=== PATIENT | male | born 1965 | race Caucasian/White ===

== ENCOUNTER 2017-05-17 12:39 | Inpatient (IN) | payer MEDICAID ==
[~2017-05-17] VITALS: Ht 165.1 cm; Wt 96.0 kg
[~2017-05-17 12:39] MED LIST: ALBU8.5H IH; ARIP10TA14 PO; ASPI-556 PO; ATOR20TA86 PO; CARB15OT OT; CEPH250 PO; CEPH500 PO; CHOL200012 PO; DIPH25ST8; DULO60CA44 PO; FISH OIL 1,01 CAP.EC PO; GABA-531 PO; GABA-533 PO; GABA300S PO; INSLAN SQ; LISI-661 PO; LITH300T4 PO; METF500T4 PO; MIRT15TA6 PO; NOCURR; OMEP20TA86 PO; PERCT PO; PREG20SO PO; PREG50 PO; QUET100T PO; QUET25TA PO; SERT20OR PO; SITA100 PO; SULF-168 PO; TRAM50TA4 PO; TRAZ-147 PO; VICOT; VICOT PO
[2017-05-17 14:05] VITALS: BP 126/89
[2017-05-17] MEDS ORDERED: BACL10TA PO (14:11)
[2017-05-17] MEDS ORDERED: PREG50 PO (14:11)
[2017-05-17] MEDS ORDERED: DULO60CA44 PO (14:12)
[2017-05-17] MEDS ORDERED: OLANZapine 5 MG RAPDIS TABLET PO PRN ×2 (14:30→15:00)
[2017-05-17] MEDS ORDERED: DULoxetine HCL 20 MG CAPSULE PO SCH (14:30)
[2017-05-17] MEDS ORDERED: ACETAMINOPHEN 325 MG TABLET PO PRN (14:30)
[2017-05-17] MEDS ORDERED: LORazepam 2 MG TABLET PO PRN ×2 (14:30)
[2017-05-17] MEDS ORDERED: HydrOXYzine PAMOATE 50 MG CAPSULE PO PRN (14:30)
[2017-05-17] MEDS ORDERED: MAGNESIUM HYDROXIDE SUSPENSION 30 ML UDCUP PO PRN (14:30)
[2017-05-17] MEDS ORDERED: TUBERCULIN, PURIFIED PROTEIN DERIVATIVE 5 TU/0.1 ML SYG ID ONE (14:30)
[2017-05-17] MEDS ORDERED: MAG HYDROX/AL HYDROX/SIMETH ES 30 ML SUSPENSION UDCUP PO PRN (14:30)
[2017-05-17] MEDS ORDERED: PROMETHAZINE HCL 25 MG TABLET PO PRN (14:30)
[2017-05-17] MEDS ORDERED: ZOLPIDEM TARTRATE 10 MG TABLET PO PRN (14:30)
[2017-05-17] MEDS ORDERED: LOPERAMIDE HCL 2 MG CAPSULE PO PRN (14:30)
[2017-05-17 14:54] VITALS: BP 140/70
[2017-05-17] MEDS ORDERED: PNEUMOCOCCAL VACCINE POLYVALENT 0.5 ML VIAL [PPSV23] IM ONE (16:00)
[2017-05-17 16:29] VITALS: BP 115/76
[2017-05-17] MEDS: THIAMINE HCL 100 MG TABLET PO SCH (16:59)
[2017-05-17 17:07] LABS: GLUCOSE,POINT OF CARE 193 MG/DL (70-110)
[2017-05-17] MEDS ORDERED: GLUCAGON,HUMAN RECOMBINANT 1 MG VIAL IM PRN (17:45)
[2017-05-17] MEDS: INSULIN ASPART 100 UNITS/ML SQ PRN (18:46)
[2017-05-17] MEDS: OLANZapine 5 MG RAPDIS TABLET PO SCH (20:12)
[2017-05-17] MEDS: ZOLPIDEM TARTRATE 10 MG TABLET PO PRN (20:12)
[2017-05-17] MEDS ORDERED: OLANZapine 7.5 MG TABLET PO SCH (21:00)
[2017-05-18 06:12] LABS: GLUCOSE,POINT OF CARE 186 MG/DL (70-110)
[2017-05-18] MEDS: MetFORMIN HCL 500 MG TABLET PO SCH (06:35)
[2017-05-18] MEDS: INSULIN ASPART 100 UNITS/ML SQ PRN ×3 (06:35→20:58)
[2017-05-18 08:17] LABS: BASOPHILS # (AUTO) 0.03 K/uL (0.00-0.20); BASOPHILS % (AUTO) 0.3 % (0.0-2.0); EOSINOPHILS # (AUTO) 0.19 K/uL (0.00-0.70); EOSINOPHILS % (AUTO) 2.37 % (1.0-6.0); HEMATOCRIT 43.4 % (41-53); HEMOGLOBIN 14.6 g/dL (13.5-17.5); LYMPHOCYTES # (AUTO) 2.9 K/uL (1.0-4.8); LYMPHOCYTES % (AUTO) 37.1 % (22.0-44.0); MEAN CORPUSCULAR HEMOGLOBIN 29.3 pg (26.0-34.0); MEAN CORPUSCULAR HGB CONC 33.7 G/dL (31.0-37.0); MEAN CORPUSCULAR VOLUME 87 fL (80-100); MONOCYTES # (AUTO) 0.6 K/uL (0.1-1.0); NEUTROPHILS # (AUTO) 4.1 K/uL (1.8-7.7); NEUTROPHILS % (AUTO) 52.2 % (40.0-70.0); PLATELET COUNT (AUTO) 268 K/uL (150-450); RED BLOOD CELL COUNT(AUTO) 5.01 MIL/uL (4.50-5.90); RED CELL DISTRIBUTION WIDTH 13.6 % (11.5-14.5); WHITE BLOOD COUNT (AUTO) 7.8 K/uL (4.5-11.0)
[2017-05-18 08:25] LABS: HEMOGLOBIN A1C 7.4 % (4.5-6.2)
[2017-05-18] MEDS: THIAMINE HCL 100 MG TABLET PO SCH ×2 (08:29→16:27)
[2017-05-18] MEDS: NALTREXONE HCL 50 MG TABLET PO SCH (08:29)
[2017-05-18] MEDS: FOLIC ACID 1 MG TABLET PO SCH (08:29)
[2017-05-18] MEDS: MULTIVITAMINS WITH MINERALS, THERAPEUTIC TABLET PO SCH (08:29)
[2017-05-18 08:39] LABS: ALANINE AMINOTRANSFERASE 72 U/L (12-78); ALBUMIN 3.5 g/dL (3.4-5.0); ANION GAP 11 mmol/L (8-16); ASPARTATE AMINOTRANSFERASE 37 U/L (15-37); BILIRUBIN,TOTAL 0.5 mg/dL (0.1-1.0); CALCIUM, TOTAL 8.7 mg/dL (8.8-10.5); CARBON DIOXIDE 27 mmol/L (22-29); CHLORIDE 100 mmol/L (98-107); CHOL/HDL RATIO 6.9 (4.2-7.3); CREATININE 0.95 mg/dL (0.60-1.30); GLOMERULAR FILTR. RATE CALC > 60 mL/min (>60); POTASSIUM 4.1 mmol/L (3.5-5.1); SODIUM SERUM 138 mmol/L (136-145); THYROID STIMULATING HORMONE 1.53 uIU/mL (0.36-3.74); TOTAL PROTEIN, SERUM 7.3 g/dL (6.4-8.2); UREA NITROGEN, BLOOD 18 mg/dL (7-18)
[2017-05-18] MEDS ORDERED: DULoxetine HCL 20 MG CAPSULE PO SCH (09:00)
[2017-05-18 09:03] VITALS: BP 112/67
[2017-05-18] MEDS ORDERED: ALBUTEROL SULFATE HFA 90 MCG/PUFF 8 GM INHALER IH PRN (11:00)
[2017-05-18] MEDS: BACLOFEN 10 MG TABLET PO SCH ×2 (13:00→16:27)
[2017-05-18 16:10] VITALS: BP 102/60
[2017-05-18 19:52] LABS: GLUCOSE,POINT OF CARE 194 MG/DL (70-110)
[2017-05-18] MEDS: OLANZapine 5 MG RAPDIS TABLET PO SCH (20:06)
[2017-05-18] MEDS: ZOLPIDEM TARTRATE 10 MG TABLET PO PRN (20:07)
[2017-05-18] MEDS ORDERED: ROSUVASTATIN CALCIUM 10 MG TABLET PO SCH (21:00)
[2017-05-18 21:07] LABS: GLUCOSE,POINT OF CARE 174 MG/DL (70-110)
[2017-05-19 00:54] VITALS: BP 129/79
[2017-05-19 06:27] LABS: GLUCOSE,POINT OF CARE 180 MG/DL (70-110)
[2017-05-19] MEDS: MetFORMIN HCL 500 MG TABLET PO SCH (07:05)
[2017-05-19] MEDS: INSULIN ASPART 100 UNITS/ML SQ PRN ×2 (07:10→20:21)
[2017-05-19] MEDS: BACLOFEN 10 MG TABLET PO SCH ×3 (08:03→16:01)
[2017-05-19] MEDS: ATORVASTATIN CALCIUM 40 MG TABLET PO SCH (08:03)
[2017-05-19] MEDS: ASPIRIN 81 MG EC TABLET PO SCH (08:04)
[2017-05-19] MEDS: NALTREXONE HCL 50 MG TABLET PO SCH (08:04)
[2017-05-19] MEDS: CHOLECALCIFEROL (VIT D3) 2,000 UNITS TABLET PO SCH (08:04)
[2017-05-19] MEDS: THIAMINE HCL 100 MG TABLET PO SCH ×2 (08:05→16:01)
[2017-05-19] MEDS: FOLIC ACID 1 MG TABLET PO SCH (08:05)
[2017-05-19 08:07] VITALS: BP 126/70
[2017-05-19] MEDS: MULTIVITAMINS WITH MINERALS, THERAPEUTIC TABLET PO SCH (08:09)
[2017-05-19] MEDS ORDERED: DULoxetine HCL 30 MG CAPSULE PO SCH (09:00)
[2017-05-19] MEDS ORDERED: NALTREXONE HCL 50 MG TABLET PO SCH (09:00)
[2017-05-19] MEDS: GABAPENTIN 300 MG CAPSULE PO SCH ×2 (16:01→20:17)
[2017-05-19 16:02] VITALS: BP 119/76
[2017-05-19] MEDS ORDERED: GABAPENTIN 300 MG CAPSULE PO SCH (17:00)
[2017-05-19 17:13] LABS: GLUCOSE,POINT OF CARE 129 MG/DL (70-110)
[2017-05-19] MEDS: ZOLPIDEM TARTRATE 10 MG TABLET PO PRN (20:17)
[2017-05-19] MEDS: OLANZapine 5 MG RAPDIS TABLET PO SCH (20:17)
[2017-05-19 20:47] LABS: GLUCOSE,POINT OF CARE 280 MG/DL (70-110)
[2017-05-20 06:22] LABS: GLUCOSE,POINT OF CARE 170 MG/DL (70-110)
[2017-05-20 06:30] VITALS: BP 104/73
[2017-05-20] MEDS: MetFORMIN HCL 500 MG TABLET PO SCH (06:38)
[2017-05-20] MEDS: INSULIN ASPART 100 UNITS/ML SQ PRN ×2 (06:42→16:29)
[2017-05-20 08:00] VITALS: BP 120/72
[2017-05-20] MEDS: MULTIVITAMINS WITH MINERALS, THERAPEUTIC TABLET PO SCH (08:23)
[2017-05-20] MEDS: GABAPENTIN 300 MG CAPSULE PO SCH ×4 (08:23→20:24)
[2017-05-20] MEDS: BACLOFEN 10 MG TABLET PO SCH ×3 (08:23→16:31)
[2017-05-20] MEDS: CHOLECALCIFEROL (VIT D3) 2,000 UNITS TABLET PO SCH (08:23)
[2017-05-20] MEDS: THIAMINE HCL 100 MG TABLET PO SCH ×2 (08:23→16:31)
[2017-05-20] MEDS: ATORVASTATIN CALCIUM 40 MG TABLET PO SCH (08:23)
[2017-05-20] MEDS: ASPIRIN 81 MG EC TABLET PO SCH (08:23)
[2017-05-20] MEDS: FOLIC ACID 1 MG TABLET PO SCH (08:23)
[2017-05-20] MEDS: NALTREXONE HCL 50 MG TABLET PO SCH (08:23)
[2017-05-20] MEDS ORDERED: DULoxetine HCL 60 MG CAPSULE PO SCH (09:00)
[2017-05-20 16:00] VITALS: BP 120/80
[2017-05-20 16:16] LABS: GLUCOSE,POINT OF CARE 192 MG/DL (70-110)
[2017-05-20] MEDS: GuaiFENesin/D-METHORPHAN [SUGAR-FREE] 200-20MG/10 ML SYRUP UDCUP PO PRN (16:51)
[2017-05-20 18:27] VITALS: BP 120/80
[2017-05-20] MEDS: OLANZapine 5 MG RAPDIS TABLET PO SCH (20:24)
[2017-05-20] MEDS: ZOLPIDEM TARTRATE 10 MG TABLET PO PRN (20:58)
[2017-05-21 00:34] VITALS: BP 109/72
[2017-05-21 06:27] LABS: GLUCOSE,POINT OF CARE 148 MG/DL (70-110)
[2017-05-21] MEDS: INSULIN ASPART 100 UNITS/ML SQ PRN ×2 (07:07→16:50)
[2017-05-21] MEDS: MetFORMIN HCL 500 MG TABLET PO SCH (07:07)
[2017-05-21 08:20] VITALS: BP 115/70
[2017-05-21] MEDS: BACLOFEN 10 MG TABLET PO SCH ×3 (08:32→16:11)
[2017-05-21] MEDS: ATORVASTATIN CALCIUM 40 MG TABLET PO SCH (08:32)
[2017-05-21] MEDS: GABAPENTIN 300 MG CAPSULE PO SCH ×4 (08:32→20:01)
[2017-05-21] MEDS: FOLIC ACID 1 MG TABLET PO SCH (08:32)
[2017-05-21] MEDS: THIAMINE HCL 100 MG TABLET PO SCH ×2 (08:32→16:11)
[2017-05-21] MEDS: ASPIRIN 81 MG EC TABLET PO SCH (08:32)
[2017-05-21] MEDS: MULTIVITAMINS WITH MINERALS, THERAPEUTIC TABLET PO SCH (08:32)
[2017-05-21] MEDS: NALTREXONE HCL 50 MG TABLET PO SCH (08:32)
[2017-05-21] MEDS: DULoxetine HCL 30 MG CAPSULE PO SCH (08:36)
[2017-05-21] MEDS: CHOLECALCIFEROL (VIT D3) 2,000 UNITS TABLET PO SCH (08:36)
[2017-05-21] MEDS: GuaiFENesin/D-METHORPHAN [SUGAR-FREE] 200-20MG/10 ML SYRUP UDCUP PO PRN (14:36)
[2017-05-21 16:00] VITALS: BP 122/74
[2017-05-21 16:52] LABS: GLUCOSE,POINT OF CARE 272 MG/DL (70-110)
[2017-05-21] MEDS: OLANZapine 5 MG RAPDIS TABLET PO SCH (20:02)
[2017-05-21] MEDS: ZOLPIDEM TARTRATE 10 MG TABLET PO PRN (20:38)
[2017-05-22 00:20] VITALS: BP 124/71
[2017-05-22 06:09] VITALS: BP 111/66
[2017-05-22 06:17] LABS: GLUCOSE,POINT OF CARE 146 MG/DL (70-110)
[2017-05-22] MEDS: MetFORMIN HCL 500 MG TABLET PO SCH (06:56)
[2017-05-22] MEDS: INSULIN ASPART 100 UNITS/ML SQ PRN ×3 (06:59→20:45)
[2017-05-22 08:01] VITALS: BP 118/67
[2017-05-22] MEDS: CHOLECALCIFEROL (VIT D3) 2,000 UNITS TABLET PO SCH (08:37)
[2017-05-22] MEDS: GABAPENTIN 300 MG CAPSULE PO SCH ×4 (08:38→20:23)
[2017-05-22] MEDS: BACLOFEN 10 MG TABLET PO SCH ×3 (08:38→16:44)
[2017-05-22] MEDS: DULoxetine HCL 30 MG CAPSULE PO SCH (08:38)
[2017-05-22] MEDS: THIAMINE HCL 100 MG TABLET PO SCH ×2 (08:38→16:44)
[2017-05-22] MEDS: NALTREXONE HCL 50 MG TABLET PO SCH (08:38)
[2017-05-22] MEDS: MULTIVITAMINS WITH MINERALS, THERAPEUTIC TABLET PO SCH (08:38)
[2017-05-22] MEDS: ATORVASTATIN CALCIUM 40 MG TABLET PO SCH (08:38)
[2017-05-22] MEDS: FOLIC ACID 1 MG TABLET PO SCH (08:39)
[2017-05-22] MEDS: ASPIRIN 81 MG EC TABLET PO SCH (08:46)
[2017-05-22] MEDS: GuaiFENesin/D-METHORPHAN [SUGAR-FREE] 200-20MG/10 ML SYRUP UDCUP PO PRN (14:07)
[2017-05-22 16:00] VITALS: BP 121/68
[2017-05-22 16:42] LABS: GLUCOSE,POINT OF CARE 231 MG/DL (70-110)
[2017-05-22] MEDS: ZOLPIDEM TARTRATE 10 MG TABLET PO PRN (20:23)
[2017-05-22] MEDS: OLANZapine 5 MG RAPDIS TABLET PO SCH (20:23)
[2017-05-22 20:33] LABS: GLUCOSE,POINT OF CARE 241 MG/DL (70-110)
[2017-05-23 00:30] VITALS: BP 114/71
[2017-05-23] MEDS: MetFORMIN HCL 500 MG TABLET PO SCH (06:31)
[2017-05-23 06:32] LABS: GLUCOSE,POINT OF CARE 140 MG/DL (70-110)
[2017-05-23 08:59] VITALS: BP 120/65
[2017-05-23] MEDS: CHOLECALCIFEROL (VIT D3) 2,000 UNITS TABLET PO SCH (09:36)
[2017-05-23] MEDS: ATORVASTATIN CALCIUM 40 MG TABLET PO SCH (09:37)
[2017-05-23] MEDS: GABAPENTIN 300 MG CAPSULE PO SCH ×3 (09:37→16:09)
[2017-05-23] MEDS: BACLOFEN 10 MG TABLET PO SCH ×3 (09:37→16:09)
[2017-05-23] MEDS: MULTIVITAMINS WITH MINERALS, THERAPEUTIC TABLET PO SCH (09:37)
[2017-05-23] MEDS: NALTREXONE HCL 50 MG TABLET PO SCH (09:37)
[2017-05-23] MEDS: THIAMINE HCL 100 MG TABLET PO SCH ×2 (09:37→16:09)
[2017-05-23] MEDS: ASPIRIN 81 MG EC TABLET PO SCH (09:38)
[2017-05-23] MEDS: FOLIC ACID 1 MG TABLET PO SCH (09:38)
[2017-05-23] MEDS: DULoxetine HCL 30 MG CAPSULE PO SCH (09:52)
[2017-05-23 12:09] VITALS: BP 118/67
[2017-05-23] MEDS ORDERED: DULO30CA2 PO (15:19)
[2017-05-23] MEDS ORDERED: NALT50 PO (15:19)
[2017-05-23] MEDS ORDERED: GABA-531 PO (15:19)
[2017-05-23] MEDS ORDERED: OLAN5Z PO (15:19)
[2017-05-23 16:28] VITALS: BP 122/65
[2017-05-23] MEDS: INSULIN ASPART 100 UNITS/ML SQ PRN (17:03)
[2017-05-23 17:08] LABS: GLUCOSE,POINT OF CARE 270 MG/DL (70-110)
[2017-05-23] MEDS ORDERED: FOLI1TAB15 PO (18:30)
[2017-05-23] MEDS ORDERED: MV-M1TAB2 PO (18:30)
[2017-05-23] MEDS ORDERED: THIA100T78 PO (18:32)
== END 2017-05-23 19:35 | disposition home or self-care (01) | DRG 750 ==
LOC: B2S 14:42
PROVIDERS: ADMIT Psychiatry & Neurology Psychiatry; ATTEND Psychiatry & Neurology Psychiatry
PROC: 3E0234Z Introduction of Serum, Toxoid and Vaccine into Muscle, Percutaneous Approach (ICD-10-PCS; principal; 2017-05-17)
DX: F25.9 Schizoaffective disorder, unspecified (principal); E55.9 Vitamin D deficiency, unspecified; E11.9 Type 2 diabetes mellitus without complications; M81.0 Age-related osteoporosis without current pathological fracture; M54.30 Sciatica, unspecified side; Z90.49 Acquired absence of other specified parts of digestive tract; Z88.2 Allergy status to sulfonamides; Z88.8 Allergy status to other drugs, medicaments and biological substances; Z83.3 Family history of diabetes mellitus; Z84.89 Family history of other specified conditions; Z23 Encounter for immunization
CPT/HCPCS: 82962; 83036; 84439; 84443; 86592; 90471

== ENCOUNTER 2018-08-22 14:58 | Inpatient (IN) | payer MEDICAID, OTHER ==
[~2018-08-22] VITALS: Ht 170.2 cm; Wt 113.9 kg
[~2018-08-22 14:58] MED LIST changes: -ALBU8.5H IH; -ARIP10TA14 PO; +BACL10TA PO; -CARB15OT OT; -CEPH250 PO; -CEPH500 PO; -DIPH25ST8; +DULO30CA2 PO; -FISH OIL 1,01 CAP.EC PO; +FOLI1TAB15 PO; -GABA-533 PO; -GABA300S PO; -INSLAN SQ; -LISI-661 PO; -LITH300T4 PO; +METF-960 PO; -METF500T4 PO; -MIRT15TA6 PO; +MV-M1TAB2 PO; +NALT50TA6 PO; -NOCURR; +OLAN5TAB40 PO; -OMEP20TA86 PO; -PERCT PO; -PREG20SO PO; -QUET100T PO; -QUET25TA PO; -SERT20OR PO; -SITA100 PO; -SULF-168 PO; +THIA100T78 PO; -TRAM50TA4 PO; -TRAZ-147 PO; -VICOT; -VICOT PO
[2018-08-22 16:55] LABS: BASOPHILS % (AUTO) 1.1 % (0.0-2.0); EOSINOPHILS % (AUTO) 1.2 % (1.0-6.0); HEMATOCRIT 44.1 % (41-53); HEMOGLOBIN 15.2 g/dL (13.5-17.5); LYMPHOCYTES # (AUTO) 2.7 K/uL (1.0-4.8); LYMPHOCYTES % (AUTO) 30.9 % (22.0-44.0); MEAN CORPUSCULAR HEMOGLOBIN 28.1 pg (26.0-34.0); MEAN CORPUSCULAR HGB CONC 34.4 G/dL (31.0-37.0); MEAN CORPUSCULAR VOLUME 82 fL (80-100); MONOCYTES # (AUTO) 0.5 K/uL (0.1-1.0); NEUTROPHILS # (AUTO) 5.3 K/uL (1.8-7.7); NEUTROPHILS % (AUTO) 60.8 % (40.0-70.0); PLATELET COUNT (AUTO) 324 K/uL (150-450); RED BLOOD CELL COUNT(AUTO) 5.41 MIL/uL (4.50-5.90); RED CELL DISTRIBUTION WIDTH 13.2 % (11.5-14.5)
[2018-08-22 17:13] LABS: ANION GAP 6 mmol/L (8-16); CARBON DIOXIDE 31 mmol/L (22-29); CHLORIDE 100 mmol/L (98-107); CREATININE 0.86 mg/dL (0.60-1.30); GLOMERULAR FILTR. RATE CALC > 60 mL/min (>60); GLUCOSE,RANDOM 273 mg/dL (70-110); POTASSIUM 4.4 mmol/L (3.5-5.1); SODIUM SERUM 137 mmol/L (136-145); UREA NITROGEN, BLOOD 15 mg/dL (7-18)
[2018-08-22] MEDS ORDERED: LORazepam 2 MG TABLET PO ONE (17:15)
[2018-08-22 17:19] LABS: ALANINE AMINOTRANSFERASE 69 U/L (12-78); ALBUMIN 3.7 g/dL (3.4-5.0); ALKALINE PHOSPHATASE 165 U/L (46-116); ASPARTATE AMINOTRANSFERASE 27 U/L (15-37); BILIRUBIN,TOTAL 0.4 mg/dL (0.1-1.0)
[2018-08-22 17:35] LABS: AMPHET/METH SCREEN,URINE NEGATIVE (NEGATIVE); BARBITURATE SCREEN, URINE NEGATIVE (NEGATIVE); BENZODIAZEPINES SCREEN,URINE NEGATIVE (NEGATIVE); CANNABINOID SCREEN,URINE NEGATIVE (NEGATIVE); COCAINE SCREEN,URINE NEGATIVE (NEGATIVE); METHADONE SCREEN, URINE NEGATIVE (NEGATIVE); OPIATE SCREEN,URINE NEGATIVE (NEGATIVE)
[2018-08-22 17:37] LABS: PHENCYCLIDINE SCREEN,URINE NEGATIVE (NEGATIVE)
[2018-08-22 19:58] VITALS: BP 132/77
[2018-08-22] MEDS ORDERED: MAGNESIUM HYDROXIDE SUSPENSION 30 ML UDCUP PO PRN (20:30)
[2018-08-22] MEDS ORDERED: CloNIDine HCL 0.1 MG TABLET PO PRN (20:30)
[2018-08-22] MEDS ORDERED: LOPERAMIDE HCL 2 MG CAPSULE PO PRN (20:30)
[2018-08-22] MEDS ORDERED: ONDANSETRON HCL 4 MG TABLET PO PRN (20:30)
[2018-08-22] MEDS ORDERED: IBUPROFEN 400 MG TABLET PO PRN (20:30)
[2018-08-22] MEDS ORDERED: GuaiFENesin/D-METHORPHAN [SUGAR-FREE] 200-20MG/10 ML SYRUP UDCUP PO PRN (20:30)
[2018-08-22] MEDS ORDERED: PETROLATUM,WHITE 71 GM JELLY TP PRN (20:30)
[2018-08-22] MEDS ORDERED: DOCUSATE SODIUM 100 MG CAPSULE PO PRN (20:30)
[2018-08-22] MEDS ORDERED: ACETAMINOPHEN 325 MG TABLET PO PRN (20:30)
[2018-08-22] MEDS: ZOLPIDEM TARTRATE 10 MG TABLET PO PRN (20:40)
[2018-08-22] MEDS ORDERED: DEXTROSE 50%-WATER 25 GM/50 ML SYRINGE IVP PRN (20:45)
[2018-08-22 21:29] LABS: CHOL/HDL RATIO 7.3 (4.2-7.3); CHOLESTEROL 248 mg/dL (131-200); HDL CHOLESTEROL 34 mg/dL (40-60); LDL CHOL (CALC.) 154 mg/dL (0-130); TRIGLYCERIDES 298 mg/dL (15-150)
[2018-08-22] MEDS ORDERED: -PHARMACY VACCINE NOTE- MISC ONE (21:30)
[2018-08-23 05:49] LABS: GLUCOMETER DEV NAME(LOC) 3EI C; GLUCOSE,POINT OF CARE 294 MG/DL (70-110)
[2018-08-23 06:13] VITALS: BP 128/81
[2018-08-23 06:32] LABS: HEMOGLOBIN A1C 10.1 % (4.5-6.2)
[2018-08-23] MEDS: MetFORMIN HCL 500 MG TABLET PO SCH (06:46)
[2018-08-23 06:53] LABS: CHOL/HDL RATIO 7.6 (4.2-7.3); THYROID STIMULATING HORMONE 4.04 uIU/mL (0.36-3.74)
[2018-08-23] MEDS: INSULIN LISPRO 100 UNITS/ML SQ PRN ×2 (07:13→17:22)
[2018-08-23 08:05] VITALS: BP 143/65
[2018-08-23] MEDS: ATORVASTATIN CALCIUM 20 MG TABLET PO SCH (08:13)
[2018-08-23] MEDS: PREGABALIN 50 MG CAPSULE PO SCH ×3 (08:13→16:40)
[2018-08-23] MEDS: BACLOFEN 10 MG TABLET PO SCH ×3 (08:13→16:39)
[2018-08-23] MEDS: FOLIC ACID 1 MG TABLET PO SCH (08:13)
[2018-08-23] MEDS: ASPIRIN 81 MG CHEWABLE TABLET PO SCH (08:14)
[2018-08-23] MEDS: MULTIVITAMINS WITH MINERALS, THERAPEUTIC TABLET PO SCH (08:14)
[2018-08-23] MEDS: THIAMINE HCL 100 MG TABLET PO SCH ×2 (08:14→16:40)
[2018-08-23] MEDS: CHOLECALCIFEROL (VIT D3) 1,000 UNITS TABLET PO SCH (08:14)
[2018-08-23 11:11] LABS: FREE T4 (FREE THYROXINE) 0.86 ng/dL (0.76-1.46)
[2018-08-23 16:30] VITALS: BP 127/72
[2018-08-23] MEDS: GABAPENTIN 300 MG CAPSULE PO SCH (16:40)
[2018-08-23 16:43] LABS: GLUCOMETER DEV NAME(LOC) 3EI C; GLUCOSE,POINT OF CARE 321 MG/DL (70-110)
[2018-08-23] MEDS: QUEtiapine FUMARATE 100 MG TABLET PO SCH (20:16)
[2018-08-23] MEDS: SIMVASTATIN 10 MG TABLET PO SCH (20:16)
[2018-08-24 05:39] LABS: GLUCOMETER DEV NAME(LOC) 3EI C; GLUCOSE,POINT OF CARE 277 MG/DL (70-110)
[2018-08-24] MEDS: MetFORMIN HCL 500 MG TABLET PO SCH (07:05)
[2018-08-24] MEDS: INSULIN LISPRO 100 UNITS/ML SQ PRN ×2 (07:18→17:44)
[2018-08-24 08:00] VITALS: BP 127/84
[2018-08-24] MEDS: ASPIRIN 81 MG CHEWABLE TABLET PO SCH (09:00)
[2018-08-24] MEDS: FOLIC ACID 1 MG TABLET PO SCH (09:01)
[2018-08-24] MEDS: SERTRALINE HCL 50 MG TABLET PO SCH (09:01)
[2018-08-24] MEDS: PREGABALIN 50 MG CAPSULE PO SCH ×3 (09:01→16:50)
[2018-08-24] MEDS: BACLOFEN 10 MG TABLET PO SCH ×3 (09:01→16:50)
[2018-08-24] MEDS: GABAPENTIN 300 MG CAPSULE PO SCH ×3 (09:01→16:50)
[2018-08-24] MEDS: ATORVASTATIN CALCIUM 20 MG TABLET PO SCH (09:02)
[2018-08-24] MEDS: THIAMINE HCL 100 MG TABLET PO SCH ×2 (09:02→16:50)
[2018-08-24] MEDS: CHOLECALCIFEROL (VIT D3) 1,000 UNITS TABLET PO SCH (09:02)
[2018-08-24] MEDS: MULTIVITAMINS WITH MINERALS, THERAPEUTIC TABLET PO SCH (09:02)
[2018-08-24] MEDS: MAG HYDROX/AL HYDROX/SIMETH ES 30 ML SUSPENSION UDCUP PO PRN ×2 (11:01→16:52)
[2018-08-24] MEDS ORDERED: BACLOFEN 10 MG TABLET PO PRN (15:00)
[2018-08-24 17:05] LABS: GLUCOMETER DEV NAME(LOC) 3EI C; GLUCOSE,POINT OF CARE 307 MG/DL (70-110)
[2018-08-24 19:32] VITALS: BP 150/66
[2018-08-24] MEDS: QUEtiapine FUMARATE 100 MG TABLET PO SCH (20:33)
[2018-08-24] MEDS: SIMVASTATIN 10 MG TABLET PO SCH (21:07)
[2018-08-25 05:35] LABS: GLUCOMETER DEV NAME(LOC) 3EI C; GLUCOSE,POINT OF CARE 312 MG/DL (70-110)
[2018-08-25] MEDS: GlipiZIDE 5 MG TABLET PO SCH (06:58)
[2018-08-25] MEDS: MetFORMIN HCL 500 MG TABLET PO SCH (06:58)
[2018-08-25] MEDS: INSULIN LISPRO 100 UNITS/ML SQ PRN ×2 (06:59→17:12)
[2018-08-25 08:00] VITALS: BP 111/68
[2018-08-25] MEDS: NICOTINE 14 MG/24 HOUR PATCH TD PRN (09:13)
[2018-08-25] MEDS: BACLOFEN 10 MG TABLET PO SCH ×3 (09:13→16:34)
[2018-08-25] MEDS: ATORVASTATIN CALCIUM 20 MG TABLET PO SCH (09:13)
[2018-08-25] MEDS: SERTRALINE HCL 50 MG TABLET PO SCH (09:14)
[2018-08-25] MEDS: PREGABALIN 50 MG CAPSULE PO SCH ×3 (09:14→16:34)
[2018-08-25] MEDS: ASPIRIN 81 MG CHEWABLE TABLET PO SCH (09:14)
[2018-08-25] MEDS: MULTIVITAMINS WITH MINERALS, THERAPEUTIC TABLET PO SCH (09:15)
[2018-08-25] MEDS: FOLIC ACID 1 MG TABLET PO SCH (09:15)
[2018-08-25] MEDS: GABAPENTIN 300 MG CAPSULE PO SCH ×3 (09:15→16:33)
[2018-08-25] MEDS: THIAMINE HCL 100 MG TABLET PO SCH ×2 (09:15→16:33)
[2018-08-25] MEDS: CHOLECALCIFEROL (VIT D3) 1,000 UNITS TABLET PO SCH (09:15)
[2018-08-25] MEDS: MAG HYDROX/AL HYDROX/SIMETH ES 30 ML SUSPENSION UDCUP PO PRN (11:35)
[2018-08-25] MEDS: LORazepam 2 MG TABLET PO PRN (16:33)
[2018-08-25] MEDS: HALOPERIDOL 5 MG TABLET PO PRN (16:33)
[2018-08-25 16:34] LABS: GLUCOMETER DEV NAME(LOC) 3EI C; GLUCOSE,POINT OF CARE 351 MG/DL (70-110)
[2018-08-25 19:56] VITALS: BP 150/64
[2018-08-25] MEDS: QUEtiapine FUMARATE 200 MG TABLET PO SCH (21:28)
[2018-08-25] MEDS: SIMVASTATIN 10 MG TABLET PO SCH (21:29)
[2018-08-26 05:59] LABS: GLUCOMETER DEV NAME(LOC) 3EI C; GLUCOSE,POINT OF CARE 358 MG/DL (70-110)
[2018-08-26] MEDS: GlipiZIDE 5 MG TABLET PO SCH (07:04)
[2018-08-26] MEDS: MetFORMIN HCL 500 MG TABLET PO SCH (07:04)
[2018-08-26] MEDS: INSULIN LISPRO 100 UNITS/ML SQ PRN ×2 (07:05→17:40)
[2018-08-26] MEDS: PREGABALIN 50 MG CAPSULE PO SCH ×3 (09:16→17:37)
[2018-08-26] MEDS: GABAPENTIN 300 MG CAPSULE PO SCH ×3 (09:17→17:37)
[2018-08-26] MEDS: ASPIRIN 81 MG CHEWABLE TABLET PO SCH (09:17)
[2018-08-26] MEDS: SERTRALINE HCL 50 MG TABLET PO SCH (09:17)
[2018-08-26] MEDS: MULTIVITAMINS WITH MINERALS, THERAPEUTIC TABLET PO SCH (09:17)
[2018-08-26] MEDS: THIAMINE HCL 100 MG TABLET PO SCH ×2 (09:17→17:37)
[2018-08-26] MEDS: FOLIC ACID 1 MG TABLET PO SCH (09:17)
[2018-08-26] MEDS: CHOLECALCIFEROL (VIT D3) 1,000 UNITS TABLET PO SCH (09:17)
[2018-08-26] MEDS: ATORVASTATIN CALCIUM 20 MG TABLET PO SCH (09:18)
[2018-08-26] MEDS: BACLOFEN 10 MG TABLET PO SCH ×3 (09:18→17:37)
[2018-08-26 10:05] VITALS: BP 126/81
[2018-08-26] MEDS: NICOTINE 14 MG/24 HOUR PATCH TD PRN (11:06)
[2018-08-26] MEDS: MAG HYDROX/AL HYDROX/SIMETH ES 30 ML SUSPENSION UDCUP PO PRN (13:07)
[2018-08-26 16:34] LABS: GLUCOMETER DEV NAME(LOC) 3EI C; GLUCOSE,POINT OF CARE 331 MG/DL (70-110)
[2018-08-26 19:53] VITALS: BP 148/74
[2018-08-26] MEDS: QUEtiapine FUMARATE 200 MG TABLET PO SCH (20:25)
[2018-08-26] MEDS: SIMVASTATIN 10 MG TABLET PO SCH (20:26)
[2018-08-27 06:09] LABS: GLUCOMETER DEV NAME(LOC) 3EI C; GLUCOSE,POINT OF CARE 282 MG/DL (70-110)
[2018-08-27] MEDS: MetFORMIN HCL 500 MG TABLET PO SCH (07:03)
[2018-08-27] MEDS: GlipiZIDE 5 MG TABLET PO SCH (07:04)
[2018-08-27] MEDS: INSULIN LISPRO 100 UNITS/ML SQ PRN ×2 (07:12→17:50)
[2018-08-27] MEDS: MULTIVITAMINS WITH MINERALS, THERAPEUTIC TABLET PO SCH (09:10)
[2018-08-27] MEDS: SERTRALINE HCL 50 MG TABLET PO SCH (09:10)
[2018-08-27] MEDS: CHOLECALCIFEROL (VIT D3) 1,000 UNITS TABLET PO SCH (09:11)
[2018-08-27] MEDS: THIAMINE HCL 100 MG TABLET PO SCH ×2 (09:11→16:31)
[2018-08-27] MEDS: PREGABALIN 50 MG CAPSULE PO SCH ×3 (09:11→16:31)
[2018-08-27] MEDS: FOLIC ACID 1 MG TABLET PO SCH (09:11)
[2018-08-27] MEDS: ASPIRIN 81 MG CHEWABLE TABLET PO SCH (09:11)
[2018-08-27] MEDS: GABAPENTIN 300 MG CAPSULE PO SCH ×3 (09:11→16:31)
[2018-08-27] MEDS: BACLOFEN 10 MG TABLET PO SCH ×3 (09:12→16:30)
[2018-08-27] MEDS: ATORVASTATIN CALCIUM 20 MG TABLET PO SCH (09:12)
[2018-08-27] MEDS: MAG HYDROX/AL HYDROX/SIMETH ES 30 ML SUSPENSION UDCUP PO PRN ×2 (09:15→20:32)
[2018-08-27 10:39] VITALS: BP 136/76
[2018-08-27] MEDS: NICOTINE 14 MG/24 HOUR PATCH TD PRN (12:39)
[2018-08-27] MEDS: LORazepam 2 MG TABLET PO PRN (16:31)
[2018-08-27 17:05] LABS: GLUCOMETER DEV NAME(LOC) 3EI C; GLUCOSE,POINT OF CARE 312 MG/DL (70-110)
[2018-08-27] MEDS: SIMVASTATIN 10 MG TABLET PO SCH (20:32)
[2018-08-27] MEDS: QUEtiapine FUMARATE 200 MG TABLET PO SCH (20:32)
[2018-08-27 22:08] VITALS: BP 123/84
[2018-08-28 05:34] LABS: GLUCOMETER DEV NAME(LOC) 3EI C; GLUCOSE,POINT OF CARE 366 MG/DL (70-110)
[2018-08-28] MEDS: MetFORMIN HCL 500 MG TABLET PO SCH (06:52)
[2018-08-28] MEDS: GlipiZIDE 5 MG TABLET PO SCH (06:52)
[2018-08-28] MEDS: INSULIN LISPRO 100 UNITS/ML SQ PRN ×2 (06:55→17:24)
[2018-08-28] MEDS: ASPIRIN 81 MG CHEWABLE TABLET PO SCH (09:56)
[2018-08-28] MEDS: PREGABALIN 50 MG CAPSULE PO SCH ×3 (09:57→16:18)
[2018-08-28] MEDS: BACLOFEN 10 MG TABLET PO SCH ×3 (09:57→16:18)
[2018-08-28] MEDS: CHOLECALCIFEROL (VIT D3) 1,000 UNITS TABLET PO SCH (09:57)
[2018-08-28] MEDS: SERTRALINE HCL 50 MG TABLET PO SCH (09:57)
[2018-08-28] MEDS: ATORVASTATIN CALCIUM 20 MG TABLET PO SCH (09:57)
[2018-08-28] MEDS: LORazepam 2 MG TABLET PO PRN (10:00)
[2018-08-28] MEDS: GABAPENTIN 300 MG CAPSULE PO SCH ×3 (10:00→16:18)
[2018-08-28] MEDS: MULTIVITAMINS WITH MINERALS, THERAPEUTIC TABLET PO SCH (10:01)
[2018-08-28] MEDS: FOLIC ACID 1 MG TABLET PO SCH (10:01)
[2018-08-28] MEDS: THIAMINE HCL 100 MG TABLET PO SCH ×2 (10:01→16:18)
[2018-08-28] MEDS: MAG HYDROX/AL HYDROX/SIMETH ES 30 ML SUSPENSION UDCUP PO PRN (10:04)
[2018-08-28] MEDS: ALBUTEROL SULFATE HFA 90 MCG/PUFF 8 GM INHALER IH PRN (16:20)
[2018-08-28 16:30] VITALS: BP 132/76
[2018-08-28 17:05] LABS: GLUCOMETER DEV NAME(LOC) 3EI C; GLUCOSE,POINT OF CARE 357 MG/DL (70-110)
[2018-08-28] MEDS: QUEtiapine FUMARATE 200 MG TABLET PO SCH (20:23)
[2018-08-28] MEDS: SIMVASTATIN 10 MG TABLET PO SCH (20:23)
[2018-08-29] MEDS ORDERED: QUET200T PO (04:19)
[2018-08-29] MEDS ORDERED: SERT50TA12 PO (04:19)
[2018-08-29] MEDS ORDERED: GABA-531 PO (04:20)
[2018-08-29] MEDS ORDERED: INSULIN LISPRO 100 UNITS/ML SQ ONE ×3 (05:45→17:15)
[2018-08-29 05:55] LABS: GLUCOMETER DEV NAME(LOC) 3EI C; GLUCOSE,POINT OF CARE 422 MG/DL (70-110)
[2018-08-29] MEDS: GlipiZIDE 5 MG TABLET PO SCH (06:47)
[2018-08-29] MEDS: MetFORMIN HCL 500 MG TABLET PO SCH (06:47)
[2018-08-29 06:58] VITALS: BP 118/90
[2018-08-29 07:19] LABS: GLUCOMETER DEV NAME(LOC) 3EI C; GLUCOSE,POINT OF CARE 411 MG/DL (70-110)
[2018-08-29 07:19] LABS: GLUCOMETER DEV NAME(LOC) 3EI C; GLUCOSE,POINT OF CARE 449 MG/DL (70-110)
[2018-08-29] MEDS: CHOLECALCIFEROL (VIT D3) 1,000 UNITS TABLET PO SCH (09:22)
[2018-08-29] MEDS: THIAMINE HCL 100 MG TABLET PO SCH ×2 (09:22→17:00)
[2018-08-29] MEDS: ASPIRIN 81 MG CHEWABLE TABLET PO SCH (09:22)
[2018-08-29] MEDS: SERTRALINE HCL 50 MG TABLET PO SCH (09:22)
[2018-08-29] MEDS: MULTIVITAMINS WITH MINERALS, THERAPEUTIC TABLET PO SCH (09:22)
[2018-08-29] MEDS: FOLIC ACID 1 MG TABLET PO SCH (09:26)
[2018-08-29] MEDS: ATORVASTATIN CALCIUM 20 MG TABLET PO SCH (09:27)
[2018-08-29] MEDS: BACLOFEN 10 MG TABLET PO SCH ×3 (09:27→17:00)
[2018-08-29] MEDS: GABAPENTIN 300 MG CAPSULE PO SCH ×3 (09:27→17:00)
[2018-08-29] MEDS: PREGABALIN 50 MG CAPSULE PO SCH ×3 (09:27→17:00)
[2018-08-29] MEDS: MAG HYDROX/AL HYDROX/SIMETH ES 30 ML SUSPENSION UDCUP PO PRN (09:32)
[2018-08-29] MEDS: LORazepam 2 MG TABLET PO PRN (09:46)
[2018-08-29 10:42] VITALS: BP 142/66
[2018-08-29] MEDS: NICOTINE 14 MG/24 HOUR PATCH TD PRN (11:25)
[2018-08-29 11:35] LABS: GLUCOMETER DEV NAME(LOC) 3EI C; GLUCOSE,POINT OF CARE 224 MG/DL (70-110)
[2018-08-29] MEDS: INSULIN LISPRO 100 UNITS/ML SQ PRN ×2 (12:21→21:35)
[2018-08-29] MEDS ORDERED: GlipiZIDE 5 MG TABLET PO SCH (17:00)
[2018-08-29 18:24] LABS: GLUCOMETER DEV NAME(LOC) 3EI C; GLUCOSE,POINT OF CARE 411 MG/DL (70-110)
[2018-08-29] MEDS: SIMVASTATIN 10 MG TABLET PO SCH (21:00)
[2018-08-29] MEDS ORDERED: INSULIN GLARGINE,HUM.REC.ANLOG 100 UNITS/ML SQ SCH ×2 (21:00)
[2018-08-29] MEDS: QUEtiapine FUMARATE 200 MG TABLET PO SCH (21:00)
[2018-08-29 21:36] VITALS: BP 138/71
[2018-08-29 21:44] LABS: GLUCOMETER DEV NAME(LOC) 3EI C; GLUCOSE,POINT OF CARE 302 MG/DL (70-110)
[2018-08-30 00:57] VITALS: BP 105/60
[2018-08-30] MEDS ORDERED: INSULIN LISPRO 100 UNITS/ML SQ ONE (05:30)
[2018-08-30 05:40] LABS: GLUCOMETER DEV NAME(LOC) 3EI C; GLUCOSE,POINT OF CARE 424 MG/DL (70-110)
[2018-08-30 06:53] LABS: GLUCOMETER DEV NAME(LOC) 3EI C; GLUCOSE,POINT OF CARE 411 MG/DL (70-110)
[2018-08-30] MEDS: MetFORMIN HCL 500 MG TABLET PO SCH (07:25)
[2018-08-30] MEDS: INSULIN GLARGINE,HUM.REC.ANLOG 100 UNITS/ML SQ SCH ×2 (08:35→17:55)
[2018-08-30] MEDS: ASPIRIN 81 MG CHEWABLE TABLET PO SCH (09:29)
[2018-08-30] MEDS: ATORVASTATIN CALCIUM 20 MG TABLET PO SCH (09:30)
[2018-08-30] MEDS: PREGABALIN 50 MG CAPSULE PO SCH ×3 (09:30→16:33)
[2018-08-30] MEDS: BACLOFEN 10 MG TABLET PO SCH ×3 (09:30→16:33)
[2018-08-30] MEDS: FOLIC ACID 1 MG TABLET PO SCH (09:30)
[2018-08-30] MEDS: GABAPENTIN 300 MG CAPSULE PO SCH ×3 (09:31→16:33)
[2018-08-30] MEDS: MULTIVITAMINS WITH MINERALS, THERAPEUTIC TABLET PO SCH (09:32)
[2018-08-30] MEDS: LORazepam 2 MG TABLET PO PRN ×3 (09:32→20:58)
[2018-08-30] MEDS: THIAMINE HCL 100 MG TABLET PO SCH ×2 (09:32→16:33)
[2018-08-30] MEDS: SERTRALINE HCL 50 MG TABLET PO SCH (09:32)
[2018-08-30] MEDS: CHOLECALCIFEROL (VIT D3) 1,000 UNITS TABLET PO SCH (09:32)
[2018-08-30] MEDS: MAG HYDROX/AL HYDROX/SIMETH ES 30 ML SUSPENSION UDCUP PO PRN ×2 (09:34→20:58)
[2018-08-30 10:40] VITALS: BP 129/69
[2018-08-30 11:34] LABS: GLUCOMETER DEV NAME(LOC) 3EI C; GLUCOSE,POINT OF CARE 239 MG/DL (70-110)
[2018-08-30] MEDS: INSULIN LISPRO 100 UNITS/ML SQ PRN ×3 (12:07→21:04)
[2018-08-30] MEDS: NICOTINE 14 MG/24 HOUR PATCH TD PRN (13:01)
[2018-08-30] MEDS: ALBUTEROL SULFATE HFA 90 MCG/PUFF 8 GM INHALER IH PRN (16:36)
[2018-08-30 16:39] LABS: GLUCOMETER DEV NAME(LOC) 3EI C; GLUCOSE,POINT OF CARE 346 MG/DL (70-110)
[2018-08-30 20:02] VITALS: BP 112/61
[2018-08-30] MEDS: QUEtiapine FUMARATE 200 MG TABLET PO SCH (20:58)
[2018-08-30] MEDS: SIMVASTATIN 10 MG TABLET PO SCH (20:58)
[2018-08-30 21:05] LABS: GLUCOMETER DEV NAME(LOC) 3EI C; GLUCOSE,POINT OF CARE 359 MG/DL (70-110)
[2018-08-31] MEDS ORDERED: INSULIN LISPRO 100 UNITS/ML SQ ONE ×2 (06:15→11:45)
[2018-08-31] MEDS: MetFORMIN HCL 500 MG TABLET PO SCH (06:54)
[2018-08-31 07:08] LABS: GLUCOMETER DEV NAME(LOC) 3EI C; GLUCOSE,POINT OF CARE 415 MG/DL (70-110)
[2018-08-31 07:09] LABS: GLUCOMETER DEV NAME(LOC) 3EI C; GLUCOSE,POINT OF CARE 366 MG/DL (70-110)
[2018-08-31] MEDS ORDERED: INSULIN GLARGINE,HUM.REC.ANLOG 100 UNITS/ML SQ SCH (09:00)
[2018-08-31] MEDS: GABAPENTIN 300 MG CAPSULE PO SCH ×3 (09:24→16:40)
[2018-08-31] MEDS: MULTIVITAMINS WITH MINERALS, THERAPEUTIC TABLET PO SCH (09:24)
[2018-08-31] MEDS: BACLOFEN 10 MG TABLET PO SCH ×3 (09:25→16:40)
[2018-08-31] MEDS: PREGABALIN 50 MG CAPSULE PO SCH ×3 (09:25→16:40)
[2018-08-31] MEDS: ASPIRIN 81 MG CHEWABLE TABLET PO SCH (09:25)
[2018-08-31] MEDS: LORazepam 2 MG TABLET PO PRN ×2 (09:25→20:50)
[2018-08-31] MEDS: THIAMINE HCL 100 MG TABLET PO SCH ×2 (09:27→16:40)
[2018-08-31] MEDS: FOLIC ACID 1 MG TABLET PO SCH (09:27)
[2018-08-31] MEDS: CHOLECALCIFEROL (VIT D3) 1,000 UNITS TABLET PO SCH (09:28)
[2018-08-31] MEDS: SERTRALINE HCL 50 MG TABLET PO SCH (09:28)
[2018-08-31] MEDS: MAG HYDROX/AL HYDROX/SIMETH ES 30 ML SUSPENSION UDCUP PO PRN (09:30)
[2018-08-31] MEDS: ATORVASTATIN CALCIUM 20 MG TABLET PO SCH (09:32)
[2018-08-31 11:50] LABS: GLUCOMETER DEV NAME(LOC) 3EI C; GLUCOSE,POINT OF CARE 419 MG/DL (70-110)
[2018-08-31] MEDS: INSULIN LISPRO 100 UNITS/ML SQ PRN ×3 (12:03→21:30)
[2018-08-31 16:48] LABS: GLUCOMETER DEV NAME(LOC) 3EI C; GLUCOSE,POINT OF CARE 335 MG/DL (70-110)
[2018-08-31] MEDS: INSULIN GLARGINE,HUM.REC.ANLOG 100 UNITS/ML SQ SCH (17:18)
[2018-08-31 18:40] VITALS: BP 132/56
[2018-08-31 20:34] LABS: GLUCOMETER DEV NAME(LOC) 3EI C; GLUCOSE,POINT OF CARE 219 MG/DL (70-110)
[2018-08-31] MEDS: SIMVASTATIN 10 MG TABLET PO SCH (20:51)
[2018-08-31] MEDS: QUEtiapine FUMARATE 200 MG TABLET PO SCH (20:51)
[2018-09-01 05:59] LABS: GLUCOMETER DEV NAME(LOC) 3EI C; GLUCOSE,POINT OF CARE 351 MG/DL (70-110)
[2018-09-01] MEDS: MetFORMIN HCL 500 MG TABLET PO SCH (06:55)
[2018-09-01] MEDS: INSULIN LISPRO 100 UNITS/ML SQ PRN ×4 (06:56→21:00)
[2018-09-01] MEDS: MULTIVITAMINS WITH MINERALS, THERAPEUTIC TABLET PO SCH (09:47)
[2018-09-01] MEDS: GABAPENTIN 300 MG CAPSULE PO SCH ×3 (09:47→16:14)
[2018-09-01] MEDS: CHOLECALCIFEROL (VIT D3) 1,000 UNITS TABLET PO SCH (09:47)
[2018-09-01] MEDS: THIAMINE HCL 100 MG TABLET PO SCH ×2 (09:47→16:14)
[2018-09-01] MEDS: SERTRALINE HCL 50 MG TABLET PO SCH (09:47)
[2018-09-01] MEDS: PREGABALIN 50 MG CAPSULE PO SCH ×3 (09:47→16:14)
[2018-09-01] MEDS: ASPIRIN 81 MG CHEWABLE TABLET PO SCH (09:47)
[2018-09-01] MEDS: FOLIC ACID 1 MG TABLET PO SCH (09:47)
[2018-09-01] MEDS: ATORVASTATIN CALCIUM 20 MG TABLET PO SCH (09:48)
[2018-09-01] MEDS: BACLOFEN 10 MG TABLET PO SCH ×3 (09:48→16:15)
[2018-09-01] MEDS: LORazepam 2 MG TABLET PO PRN (09:52)
[2018-09-01] MEDS: INSULIN GLARGINE,HUM.REC.ANLOG 100 UNITS/ML SQ SCH ×2 (09:59→17:16)
[2018-09-01 11:54] LABS: GLUCOMETER DEV NAME(LOC) 3EI C; GLUCOSE,POINT OF CARE 378 MG/DL (70-110)
[2018-09-01] MEDS: NICOTINE 14 MG/24 HOUR PATCH TD PRN (15:35)
[2018-09-01 17:31] VITALS: BP 131/73
[2018-09-01 17:54] LABS: GLUCOMETER DEV NAME(LOC) 3EI C; GLUCOSE,POINT OF CARE 367 MG/DL (70-110)
[2018-09-01 20:29] LABS: GLUCOMETER DEV NAME(LOC) 3EI C; GLUCOSE,POINT OF CARE 258 MG/DL (70-110)
[2018-09-01] MEDS: QUEtiapine FUMARATE 200 MG TABLET PO SCH (20:54)
[2018-09-01] MEDS: SIMVASTATIN 10 MG TABLET PO SCH (20:55)
[2018-09-01] MEDS: MAG HYDROX/AL HYDROX/SIMETH ES 30 ML SUSPENSION UDCUP PO PRN (20:56)
[2018-09-02 05:24] LABS: GLUCOMETER DEV NAME(LOC) 3EI C; GLUCOSE,POINT OF CARE 317 MG/DL (70-110)
[2018-09-02] MEDS: MetFORMIN HCL 500 MG TABLET PO SCH (07:08)
[2018-09-02] MEDS: INSULIN LISPRO 100 UNITS/ML SQ PRN ×4 (07:11→21:16)
[2018-09-02] MEDS: MULTIVITAMINS WITH MINERALS, THERAPEUTIC TABLET PO SCH (08:23)
[2018-09-02] MEDS: ASPIRIN 81 MG CHEWABLE TABLET PO SCH (08:23)
[2018-09-02] MEDS: THIAMINE HCL 100 MG TABLET PO SCH ×2 (08:23→16:17)
[2018-09-02] MEDS: PREGABALIN 50 MG CAPSULE PO SCH ×3 (08:24→16:17)
[2018-09-02] MEDS: GABAPENTIN 300 MG CAPSULE PO SCH ×3 (08:24→16:18)
[2018-09-02] MEDS: SERTRALINE HCL 50 MG TABLET PO SCH (08:25)
[2018-09-02] MEDS: BACLOFEN 10 MG TABLET PO SCH ×3 (08:26→16:18)
[2018-09-02] MEDS: ATORVASTATIN CALCIUM 20 MG TABLET PO SCH (08:26)
[2018-09-02] MEDS: FOLIC ACID 1 MG TABLET PO SCH (08:26)
[2018-09-02] MEDS: CHOLECALCIFEROL (VIT D3) 1,000 UNITS TABLET PO SCH (08:27)
[2018-09-02] MEDS: INSULIN GLARGINE,HUM.REC.ANLOG 100 UNITS/ML SQ SCH (08:38)
[2018-09-02] MEDS: MAG HYDROX/AL HYDROX/SIMETH ES 30 ML SUSPENSION UDCUP PO PRN (08:55)
[2018-09-02 11:07] VITALS: BP 145/82
[2018-09-02 11:34] LABS: GLUCOMETER DEV NAME(LOC) 3EI C; GLUCOSE,POINT OF CARE 378 MG/DL (70-110)
[2018-09-02] MEDS: NICOTINE 14 MG/24 HOUR PATCH TD PRN (13:58)
[2018-09-02 16:14] LABS: GLUCOMETER DEV NAME(LOC) 3EI C; GLUCOSE,POINT OF CARE 307 MG/DL (70-110)
[2018-09-02] MEDS: LORazepam 2 MG TABLET PO PRN ×2 (16:17→21:15)
[2018-09-02] MEDS: HALOPERIDOL 5 MG TABLET PO PRN (16:18)
[2018-09-02 16:42] VITALS: BP 130/59
[2018-09-02 20:29] LABS: GLUCOMETER DEV NAME(LOC) 3EI C; GLUCOSE,POINT OF CARE 396 MG/DL (70-110)
[2018-09-02] MEDS: SIMVASTATIN 10 MG TABLET PO SCH (21:15)
[2018-09-02] MEDS: QUEtiapine FUMARATE 200 MG TABLET PO SCH (21:15)
[2018-09-02] MEDS: ZOLPIDEM TARTRATE 10 MG TABLET PO PRN (21:15)
[2018-09-03 05:34] VITALS: BP 119/77
[2018-09-03 05:34] LABS: GLUCOMETER DEV NAME(LOC) 3EI C; GLUCOSE,POINT OF CARE 335 MG/DL (70-110)
[2018-09-03] MEDS: MetFORMIN HCL 500 MG TABLET PO SCH (06:53)
[2018-09-03] MEDS: INSULIN LISPRO 100 UNITS/ML SQ PRN ×4 (06:53→21:43)
[2018-09-03] MEDS: PREGABALIN 50 MG CAPSULE PO SCH ×3 (08:08→16:34)
[2018-09-03] MEDS: CHOLECALCIFEROL (VIT D3) 1,000 UNITS TABLET PO SCH (08:08)
[2018-09-03] MEDS: ASPIRIN 81 MG CHEWABLE TABLET PO SCH (08:08)
[2018-09-03] MEDS: BACLOFEN 10 MG TABLET PO SCH ×3 (08:08→16:34)
[2018-09-03] MEDS: ATORVASTATIN CALCIUM 20 MG TABLET PO SCH (08:09)
[2018-09-03] MEDS: MULTIVITAMINS WITH MINERALS, THERAPEUTIC TABLET PO SCH (08:09)
[2018-09-03] MEDS: SERTRALINE HCL 50 MG TABLET PO SCH (08:09)
[2018-09-03] MEDS: THIAMINE HCL 100 MG TABLET PO SCH ×2 (08:09→16:34)
[2018-09-03] MEDS: GABAPENTIN 300 MG CAPSULE PO SCH ×3 (08:10→16:34)
[2018-09-03] MEDS: FOLIC ACID 1 MG TABLET PO SCH (08:10)
[2018-09-03] MEDS: INSULIN GLARGINE,HUM.REC.ANLOG 100 UNITS/ML SQ SCH ×2 (08:38→17:54)
[2018-09-03 08:58] VITALS: BP 135/68
[2018-09-03 11:28] LABS: GLUCOMETER DEV NAME(LOC) 3EI C; GLUCOSE,POINT OF CARE 345 MG/DL (70-110)
[2018-09-03] MEDS: LORazepam 2 MG TABLET PO PRN (12:49)
[2018-09-03] MEDS: MAG HYDROX/AL HYDROX/SIMETH ES 30 ML SUSPENSION UDCUP PO PRN (12:53)
[2018-09-03 16:19] LABS: GLUCOMETER DEV NAME(LOC) 3EI C; GLUCOSE,POINT OF CARE 306 MG/DL (70-110)
[2018-09-03 16:31] VITALS: BP 120/86
[2018-09-03 16:35] VITALS: BP 125/69
[2018-09-03 20:40] LABS: GLUCOMETER DEV NAME(LOC) 3EI C; GLUCOSE,POINT OF CARE 314 MG/DL (70-110)
[2018-09-03] MEDS: SIMVASTATIN 10 MG TABLET PO SCH (21:42)
[2018-09-03] MEDS: ZOLPIDEM TARTRATE 10 MG TABLET PO PRN (21:42)
[2018-09-03] MEDS: QUEtiapine FUMARATE 200 MG TABLET PO SCH (21:43)
[2018-09-04 01:23] VITALS: BP 131/85
[2018-09-04 05:55] LABS: GLUCOMETER DEV NAME(LOC) 3EI C; GLUCOSE,POINT OF CARE 224 MG/DL (70-110)
[2018-09-04] MEDS: MetFORMIN HCL 500 MG TABLET PO SCH (06:51)
[2018-09-04] MEDS: LORazepam 2 MG TABLET PO PRN (06:51)
[2018-09-04] MEDS: INSULIN LISPRO 100 UNITS/ML SQ PRN ×2 (07:14→12:13)
[2018-09-04] MEDS: SERTRALINE HCL 50 MG TABLET PO SCH (08:13)
[2018-09-04] MEDS: PREGABALIN 50 MG CAPSULE PO SCH ×2 (08:13→12:14)
[2018-09-04] MEDS: ASPIRIN 81 MG CHEWABLE TABLET PO SCH (08:13)
[2018-09-04] MEDS: MULTIVITAMINS WITH MINERALS, THERAPEUTIC TABLET PO SCH (08:13)
[2018-09-04] MEDS: FOLIC ACID 1 MG TABLET PO SCH (08:15)
[2018-09-04] MEDS: CHOLECALCIFEROL (VIT D3) 1,000 UNITS TABLET PO SCH (08:15)
[2018-09-04] MEDS: GABAPENTIN 300 MG CAPSULE PO SCH ×2 (08:15→12:13)
[2018-09-04] MEDS: BACLOFEN 10 MG TABLET PO SCH ×2 (08:16→12:13)
[2018-09-04] MEDS: ATORVASTATIN CALCIUM 20 MG TABLET PO SCH (08:17)
[2018-09-04] MEDS: THIAMINE HCL 100 MG TABLET PO SCH (08:18)
[2018-09-04] MEDS: INSULIN GLARGINE,HUM.REC.ANLOG 100 UNITS/ML SQ SCH (08:25)
[2018-09-04 09:34] VITALS: BP 129/74
[2018-09-04 11:20] LABS: GLUCOMETER DEV NAME(LOC) 3EI C; GLUCOSE,POINT OF CARE 381 MG/DL (70-110)
[2018-09-04] MEDS ORDERED: INSLAN SQ (12:15)
[2018-09-04] MEDS ORDERED: SIMV-259 PO (12:16)
[2018-09-04] MEDS: MAG HYDROX/AL HYDROX/SIMETH ES 30 ML SUSPENSION UDCUP PO PRN (12:18)
[2018-09-04] MEDS: NICOTINE 14 MG/24 HOUR PATCH TD PRN (12:18)
== END 2018-09-04 16:00 | disposition home or self-care (01) | DRG 750 ==
LOC: EMS 14:59 → 3EI 18:17
DX: F25.1 Schizoaffective disorder, depressive type (principal); E11.9 Type 2 diabetes mellitus without complications; R45.851 Suicidal ideations; E55.9 Vitamin D deficiency, unspecified; E78.00 Pure hypercholesterolemia, unspecified; E78.5 Hyperlipidemia, unspecified; F10.10 Alcohol abuse, uncomplicated; F12.90 Cannabis use, unspecified, uncomplicated; F17.200 Nicotine dependence, unspecified, uncomplicated; I10 Essential (primary) hypertension; J44.9 Chronic obstructive pulmonary disease, unspecified; M19.90 Unspecified osteoarthritis, unspecified site; M54.30 Sciatica, unspecified side; M81.0 Age-related osteoporosis without current pathological fracture; M25.559 Pain in unspecified hip; Z59.0 Homelessness; Z79.4 Long term (current) use of insulin; Z79.899 Other long term (current) drug therapy; Z99.3 Dependence on wheelchair; Z88.2 Allergy status to sulfonamides; Z23 Encounter for immunization
CPT/HCPCS: 73503; 83036; 84439; 84443; 90686; 99406; G0480; J1815; J3535

== ENCOUNTER 2019-07-31 00:43 | Inpatient (IN) | payer MEDICAID, OTHER ==
[~2019-07-31] VITALS: Ht 167.6 cm; Wt 97.7 kg
[~2019-07-31 00:43] MED LIST changes: -DULO30CA2 PO; -DULO60CA44 PO; +INSLAN SQ; -NALT50TA6 PO; -OLAN5TAB40 PO; +QUET200T PO; +SERT50TA12 PO; +SIMV-259 PO
[2019-07-31 01:10] LABS: GLUCOSE,POINT OF CARE 471 MG/DL (70-110)
[2019-07-31 02:59] LABS: BASOPHILS % (AUTO) 0.3 % (0.0-2.0); EOSINOPHILS % (AUTO) 0.4 % (1.0-6.0); HEMATOCRIT 44.2 % (41-53); HEMOGLOBIN 14.7 g/dL (13.5-17.5); LYMPHOCYTES # (AUTO) 3.3 K/uL (1.0-4.8); LYMPHOCYTES % (AUTO) 23.1 % (22.0-44.0); MEAN CORPUSCULAR HEMOGLOBIN 29.2 pg (26.0-34.0); MEAN CORPUSCULAR HGB CONC 33.2 G/dL (31.0-37.0); MEAN CORPUSCULAR VOLUME 88 fL (80-100); MONOCYTES # (AUTO) 0.9 K/uL (0.1-1.0); MONOCYTES % (AUTO) 6.1 % (2.0-9.0); NEUTROPHILS % (AUTO) 70.1 % (40.0-70.0); PLATELET COUNT (AUTO) 351 K/uL (150-450); RED BLOOD CELL COUNT(AUTO) 5.02 MIL/uL (4.50-5.90); RED CELL DISTRIBUTION WIDTH 12.9 % (11.5-14.5)
[2019-07-31] MEDS ORDERED: SODIUM CHLORIDE 0.9% 1,000 ML IV ONE ×2 (03:15→16:40)
[2019-07-31] MEDS ORDERED: KETOROLAC TROMETHAMINE 30 MG/ML VIAL IVP ONE (03:15)
[2019-07-31] MEDS ORDERED: MethylPREDNISolone SOD SUCC 125 MG/2 ML VIAL IVP ONE (03:15)
[2019-07-31 03:20] LABS: ALANINE AMINOTRANSFERASE 18 U/L (12-78); ALBUMIN 3.9 g/dL (3.4-5.0); ALKALINE PHOSPHATASE 191 U/L (46-116); ANION GAP 11 mmol/L (8-16); ASPARTATE AMINOTRANSFERASE 9 U/L (15-37); C-REACTIVE PROTEIN QUANT 5.94 mg/dL (0.00-0.30); CALCIUM, TOTAL 9.4 mg/dL (8.8-10.5); CARBON DIOXIDE 30 mmol/L (22-29); CHLORIDE 90 mmol/L (98-107); CREATININE 0.95 mg/dL (0.60-1.30); GLOMERULAR FILTR. RATE CALC > 60 mL/min (>60); SODIUM SERUM 131 mmol/L (136-145); TOTAL PROTEIN, SERUM 7.9 g/dL (6.4-8.2); UREA NITROGEN, BLOOD 9 mg/dL (7-18)
[2019-07-31 03:23] LABS: GLUCOSE,RANDOM 509 mg/dL (70-110); LACTIC ACID 3.1 mmol/L (0.4-2.0)
[2019-07-31] MEDS ORDERED: SODIUM CHLORIDE 0.9% 2,850 ML IV ONE (03:28)
[2019-07-31] MEDS ORDERED: SODIUM CHLORIDE 0.9% 2,000 ML IV ONE (03:30)
[2019-07-31] MEDS ORDERED: FLUCONAZOLE 150 MG TABLET PO ONE (03:30)
[2019-07-31 03:41] LABS: GLUCOSE,POINT OF CARE 448 MG/DL (70-110)
[2019-07-31] MEDS ORDERED: MAALOX/LIDOCAINE/NYSTATIN SUSP 5 ML ORAL.SYG MM ONE (03:45)
[2019-07-31] MEDS ORDERED: CLINDAMYCIN 600 MG/D5% WATER 50 ML IV ONE (03:45)
[2019-07-31] MEDS ORDERED: ACETAMINOPHEN 325 MG TABLET PO PRN ×2 (03:45→07:00)
[2019-07-31] MEDS ORDERED: ONDANSETRON HCL 4 MG/2 ML VIAL IVP PRN ×2 (03:45→07:00)
[2019-07-31 03:52] LABS: INR 0.9 (0.9-1.1); PROTHROMBIN TIME 9.7 SEC (9.4-11.6)
[2019-07-31] MEDS: INSULIN REGULAR, HUMAN 100 UNITS/ML IVP ONE ×2 (04:30→04:33)
[2019-07-31 06:00] VITALS: BP 97/62
[2019-07-31] MEDS ORDERED: MAGNESIUM SULFATE 2 GM/WATER 50 ML IV PRN (07:00)
[2019-07-31] MEDS ORDERED: DEXTROSE 50%-WATER 25 GM/50 ML SYRINGE IVP PRN ×3 (07:00→17:00)
[2019-07-31] MEDS ORDERED: 0.9% SODIUM CHLORIDE 10 ML SYRINGE IVP PRN (07:00)
[2019-07-31] MEDS ORDERED: POTASSIUM CHL 10 MEQ/WATER 50 ML IV PRN (07:00)
[2019-07-31] MEDS ORDERED: INSULIN LISPRO 100 UNITS/ML SQ PRN ×2 (07:00→12:30)
[2019-07-31] MEDS ORDERED: MAGNESIUM SULFATE 4 GM/WATER 100 ML IV PRN (07:00)
[2019-07-31] MEDS ORDERED: POTASSIUM CHLORIDE 20 MEQ ER TABLET PO PRN (07:00)
[2019-07-31] MEDS ORDERED: ZOLPIDEM TARTRATE 5 MG TABLET PO PRN (07:00)
[2019-07-31 07:49] VITALS: BP 100/63
[2019-07-31] MEDS: CefTRIAXone 1 GM/DEXTROSE 50 ML IV SCH (08:43)
[2019-07-31] MEDS: MetFORMIN HCL 500 MG TABLET PO SCH (08:43)
[2019-07-31] MEDS: ATORVASTATIN CALCIUM 20 MG TABLET PO SCH (08:44)
[2019-07-31] MEDS: PREGABALIN 50 MG CAPSULE PO SCH ×3 (08:44→21:48)
[2019-07-31] MEDS: FOLIC ACID 1 MG TABLET PO SCH (08:44)
[2019-07-31] MEDS: ASPIRIN 81 MG EC TABLET PO SCH (08:44)
[2019-07-31] MEDS: DOCUSATE SODIUM 100 MG CAPSULE PO SCH ×2 (08:44→21:47)
[2019-07-31] MEDS: BACLOFEN 10 MG TABLET PO SCH ×3 (08:44→22:19)
[2019-07-31] MEDS: HEPARIN SODIUM,PORCINE 5,000 UNITS/ML VIAL SQ SCH ×2 (08:44→16:06)
[2019-07-31] MEDS: PANTOPRAZOLE SODIUM 40 MG DR TABLET PO SCH (08:45)
[2019-07-31] MEDS: THIAMINE HCL 100 MG TABLET PO SCH ×2 (08:45→21:48)
[2019-07-31] MEDS: GABAPENTIN 300 MG CAPSULE PO SCH ×3 (08:45→21:48)
[2019-07-31] MEDS: SERTRALINE HCL 50 MG TABLET PO SCH (08:45)
[2019-07-31] MEDS: CHOLECALCIFEROL (VIT D3) 1,000 UNITS TABLET PO SCH (08:47)
[2019-07-31] MEDS ORDERED: INSULIN GLARGINE,HUM.REC.ANLOG 100 UNITS/ML SQ SCH (09:00)
[2019-07-31] MEDS ORDERED: SODIUM CHLORIDE 0.9% 1,000 ML IV SCH ×2 (11:00→16:47)
[2019-07-31 11:37] LABS: GLUCOMETER DEV NAME(LOC) 6N.1; GLUCOSE,POINT OF CARE 305 MG/DL (70-110)
[2019-07-31 11:37] LABS: GLUCOMETER DEV NAME(LOC) 6N.1; GLUCOSE,POINT OF CARE > 600 MG/DL (70-110)
[2019-07-31 12:08] VITALS: BP 118/69
[2019-07-31] MEDS ORDERED: INSULIN REGULAR, HUMAN 100 UNITS/ML IVP ONE ×2 (12:30→17:00)
[2019-07-31] MEDS: SODIUM CHLORIDE 0.9% 1,000 ML IV SCH ×2 (12:47→19:10)
[2019-07-31 15:52] LABS: CALCIUM, TOTAL 8.7 mg/dL (8.8-10.5); CREATININE 1.41 mg/dL (0.60-1.30); POTASSIUM 4.1 mmol/L (3.5-5.1)
[2019-07-31 16:18] VITALS: BP 109/70
[2019-07-31] MEDS ORDERED: INSULIN REGULAR, HUMAN 100 UNITS in SODIUM CHLORIDE 0.9% 99 ML IV PRN ×2 (16:47)
[2019-07-31] MEDS ORDERED: SODIUM CHLORIDE 0.45% 1,000 ML IV PRN (16:47)
[2019-07-31] MEDS ORDERED: POTASSIUM CHL 20 MEQ/0.45% NS 1,000 ML IV PRN (16:47)
[2019-07-31] MEDS ORDERED: DEXTROSE 5%-0.45% SODIUM CHL 1,000 ML IV PRN (16:47)
[2019-07-31] MEDS ORDERED: VANCOMYCIN HCL 1.5 GM in DEXTROSE 5%-WATER 250 ML IV ONE (18:30)
[2019-07-31 19:21] LABS: BASOPHILS % (AUTO) 0.7 % (0.0-2.0); EOSINOPHILS % (AUTO) 0 % (1.0-6.0); HEMATOCRIT 42.4 % (41-53); HEMOGLOBIN 13.8 g/dL (13.5-17.5); LYMPHOCYTES # (AUTO) 1.8 K/uL (1.0-4.8); LYMPHOCYTES % (AUTO) 13.4 % (22.0-44.0); MEAN CORPUSCULAR HEMOGLOBIN 28.7 pg (26.0-34.0); MEAN CORPUSCULAR HGB CONC 32.5 G/dL (31.0-37.0); MEAN CORPUSCULAR VOLUME 88 fL (80-100); MONOCYTES # (AUTO) 0.7 K/uL (0.1-1.0); MONOCYTES % (AUTO) 5.1 % (2.0-9.0); NEUTROPHILS # (AUTO) 10.6 K/uL (1.8-7.7); NEUTROPHILS % (AUTO) 80.8 % (40.0-70.0); PLATELET COUNT (AUTO) 329 K/uL (150-450); RED CELL DISTRIBUTION WIDTH 13.1 % (11.5-14.5)
[2019-07-31] MEDS: INSULIN REGULAR, HUMAN 100 UNITS/ML IVP PRN ×2 (19:33→20:09)
[2019-07-31 19:35] LABS: ANION GAP 10 mmol/L (8-16); CARBON DIOXIDE 25 mmol/L (22-29); CHLORIDE 98 mmol/L (98-107); CREATININE 0.81 mg/dL (0.60-1.30); GLOMERULAR FILTR. RATE CALC > 60 mL/min (>60); GLUCOSE,RANDOM 267 mg/dL (70-110); POTASSIUM 3.9 mmol/L (3.5-5.1); SODIUM SERUM 133 mmol/L (136-145)
[2019-07-31 19:45] LABS: UREA NITROGEN, BLOOD 11 mg/dL (7-18)
[2019-07-31 20:00] VITALS: BP 107/70
[2019-07-31] MEDS: POTASSIUM CHLORIDE 40 MEQ in SODIUM CHLORIDE 0.45% 1,000 ML IV PRN ×2 (20:44→23:27)
[2019-07-31] MEDS: SIMVASTATIN 10 MG TABLET PO SCH (21:48)
[2019-07-31] MEDS: QUEtiapine FUMARATE 200 MG TABLET PO SCH (22:18)
[2019-08-01] VITALS (7 sets, daily range): BP systolic 93–137; BP diastolic 55–83
[2019-08-01 00:09] LABS: ANION GAP 9 mmol/L (8-16); CARBON DIOXIDE 24 mmol/L (22-29); CHLORIDE 104 mmol/L (98-107); CREATININE 0.57 mg/dL (0.60-1.30); GLOMERULAR FILTR. RATE CALC > 60 mL/min (>60); GLUCOSE,RANDOM 102 mg/dL (70-110); POTASSIUM 4.6 mmol/L (3.5-5.1); SODIUM SERUM 137 mmol/L (136-145); UREA NITROGEN, BLOOD 10 mg/dL (7-18)
[2019-08-01] MEDS: HEPARIN SODIUM,PORCINE 5,000 UNITS/ML VIAL SQ SCH ×4 (00:42→23:47)
[2019-08-01 03:21] LABS: BASOPHILS % (AUTO) 0.5 % (0.0-2.0); EOSINOPHILS % (AUTO) 0.1 % (1.0-6.0); HEMATOCRIT 40.6 % (41-53); HEMOGLOBIN 13.3 g/dL (13.5-17.5); LYMPHOCYTES # (AUTO) 2.4 K/uL (1.0-4.8); LYMPHOCYTES % (AUTO) 17.6 % (22.0-44.0); MEAN CORPUSCULAR HEMOGLOBIN 28.4 pg (26.0-34.0); MEAN CORPUSCULAR HGB CONC 32.7 G/dL (31.0-37.0); MEAN CORPUSCULAR VOLUME 87 fL (80-100); MONOCYTES # (AUTO) 0.7 K/uL (0.1-1.0); MONOCYTES % (AUTO) 5.5 % (2.0-9.0); NEUTROPHILS # (AUTO) 10.5 K/uL (1.8-7.7); NEUTROPHILS % (AUTO) 76.3 % (40.0-70.0); PLATELET COUNT (AUTO) 315 K/uL (150-450); RED BLOOD CELL COUNT(AUTO) 4.68 MIL/uL (4.50-5.90); RED CELL DISTRIBUTION WIDTH 12.8 % (11.5-14.5)
[2019-08-01 03:32] LABS: ALANINE AMINOTRANSFERASE 15 U/L (12-78); ALBUMIN 2.7 g/dL (3.4-5.0); ALKALINE PHOSPHATASE 118 U/L (46-116); ANION GAP 9 mmol/L (8-16); ASPARTATE AMINOTRANSFERASE 11 U/L (15-37); BILIRUBIN,TOTAL 0.3 mg/dL (0.1-1.0); CALCIUM, TOTAL 8.4 mg/dL (8.8-10.5); CARBON DIOXIDE 24 mmol/L (22-29); CHLORIDE 106 mmol/L (98-107); CREATININE 0.49 mg/dL (0.60-1.30); GLOMERULAR FILTR. RATE CALC > 60 mL/min (>60); GLUCOSE,RANDOM 94 mg/dL (70-110); SODIUM SERUM 139 mmol/L (136-145); TOTAL PROTEIN, SERUM 6.1 g/dL (6.4-8.2)
[2019-08-01 03:39] LABS: UREA NITROGEN, BLOOD 10 mg/dL (7-18)
[2019-08-01] MEDS ORDERED: DEXTROSE 50%-WATER 25 GM/50 ML SYRINGE IVP PRN (06:15)
[2019-08-01] MEDS ORDERED: VANCOMYCIN HCL 750 MG in DEXTROSE 5%-WATER 250 ML IV SCH (07:00)
[2019-08-01] MEDS: SODIUM CHLORIDE 0.9% 1,000 ML IV SCH (08:30)
[2019-08-01 08:40] LABS: GLUCOSE,POINT OF CARE 315 MG/DL (70-110)
[2019-08-01 08:40] LABS: GLUCOSE,POINT OF CARE 258 MG/DL (70-110)
[2019-08-01 08:40] LABS: GLUCOSE,POINT OF CARE 569 MG/DL (70-110)
[2019-08-01 08:40] LABS: GLUCOSE,POINT OF CARE 107 MG/DL (70-110)
[2019-08-01 08:40] LABS: GLUCOSE,POINT OF CARE 93 MG/DL (70-110)
[2019-08-01 08:40] LABS: GLUCOSE,POINT OF CARE 90 MG/DL (70-110)
[2019-08-01 08:40] LABS: GLUCOSE,POINT OF CARE 110 MG/DL (70-110)
[2019-08-01 08:40] LABS: GLUCOSE,POINT OF CARE 254 MG/DL (70-110)
[2019-08-01 08:40] LABS: GLUCOSE,POINT OF CARE 111 MG/DL (70-110)
[2019-08-01 08:40] LABS: GLUCOSE,POINT OF CARE 159 MG/DL (70-110)
[2019-08-01] MEDS: VANCOMYCIN HCL 1.25 GM in DEXTROSE 5%-WATER 250 ML IV SCH ×3 (08:58→23:47)
[2019-08-01] MEDS: MetFORMIN HCL 500 MG TABLET PO SCH (08:59)
[2019-08-01] MEDS: CefTRIAXone 1 GM/DEXTROSE 50 ML IV SCH (09:00)
[2019-08-01] MEDS: PREGABALIN 50 MG CAPSULE PO SCH ×3 (09:44→20:32)
[2019-08-01] MEDS: CHOLECALCIFEROL (VIT D3) 1,000 UNITS TABLET PO SCH (09:44)
[2019-08-01] MEDS: THIAMINE HCL 100 MG TABLET PO SCH ×2 (09:45→20:32)
[2019-08-01] MEDS: DOCUSATE SODIUM 100 MG CAPSULE PO SCH ×2 (09:45→20:32)
[2019-08-01] MEDS: BACLOFEN 10 MG TABLET PO SCH ×3 (09:45→20:32)
[2019-08-01] MEDS: PANTOPRAZOLE SODIUM 40 MG DR TABLET PO SCH (09:45)
[2019-08-01] MEDS: ATORVASTATIN CALCIUM 20 MG TABLET PO SCH (09:45)
[2019-08-01] MEDS: SERTRALINE HCL 50 MG TABLET PO SCH (09:45)
[2019-08-01] MEDS: FOLIC ACID 1 MG TABLET PO SCH (09:46)
[2019-08-01] MEDS: ASPIRIN 81 MG EC TABLET PO SCH (09:46)
[2019-08-01] MEDS: GABAPENTIN 300 MG CAPSULE PO SCH ×3 (09:46→20:32)
[2019-08-01] MEDS: CHLORHEXIDINE GLUCONATE 4% 118 ML TOPICAL LIQUID TP SCH (10:15)
[2019-08-01 13:05] LABS: GLUCOSE,POINT OF CARE 105 MG/DL (70-110)
[2019-08-01 13:05] LABS: GLUCOSE,POINT OF CARE 251 MG/DL (70-110)
[2019-08-01] MEDS: INSULIN LISPRO 100 UNITS/ML SQ PRN ×3 (17:21→23:47)
[2019-08-01] MEDS: MAGNESIUM OXIDE 400 MG TABLET PO PRN ×2 (17:45→23:46)
[2019-08-01 18:31] LABS: GLUCOMETER DEV NAME(LOC) 6N.1; GLUCOSE,POINT OF CARE 236 MG/DL (70-110)
[2019-08-01] MEDS: QUEtiapine FUMARATE 200 MG TABLET PO SCH (20:32)
[2019-08-01] MEDS: SIMVASTATIN 10 MG TABLET PO SCH (20:32)
[2019-08-01] MEDS ORDERED: SODIUM CHLORIDE 0.9% 250 ML IV ONE (23:43)
[2019-08-02 02:40] LABS: GLUCOMETER DEV NAME(LOC) 6N.1; GLUCOSE,POINT OF CARE 178 MG/DL (70-110)
[2019-08-02 02:40] LABS: GLUCOMETER DEV NAME(LOC) 6N.1; GLUCOSE,POINT OF CARE 132 MG/DL (70-110)
[2019-08-02 04:41] VITALS: BP 106/66
[2019-08-02] MEDS: INSULIN LISPRO 100 UNITS/ML SQ PRN ×3 (04:43→17:41)
[2019-08-02] MEDS: VANCOMYCIN HCL 1.25 GM in DEXTROSE 5%-WATER 250 ML IV SCH ×2 (06:31→15:27)
[2019-08-02 06:55] LABS: GLUCOMETER DEV NAME(LOC) 6N.1; GLUCOSE,POINT OF CARE 177 MG/DL (70-110)
[2019-08-02 07:10] LABS: VANCOMYCIN,RANDOM 19.6 mcg/mL (25.0-50.0)
[2019-08-02] MEDS: MetFORMIN HCL 500 MG TABLET PO SCH (08:20)
[2019-08-02] MEDS: THIAMINE HCL 100 MG TABLET PO SCH (08:21)
[2019-08-02] MEDS: SERTRALINE HCL 50 MG TABLET PO SCH (08:21)
[2019-08-02] MEDS: DOCUSATE SODIUM 100 MG CAPSULE PO SCH (08:21)
[2019-08-02] MEDS: BACLOFEN 10 MG TABLET PO SCH ×2 (08:21→15:23)
[2019-08-02] MEDS: ATORVASTATIN CALCIUM 20 MG TABLET PO SCH (08:21)
[2019-08-02] MEDS: PREGABALIN 50 MG CAPSULE PO SCH ×2 (08:21→15:23)
[2019-08-02] MEDS: FOLIC ACID 1 MG TABLET PO SCH (08:22)
[2019-08-02] MEDS: PANTOPRAZOLE SODIUM 40 MG DR TABLET PO SCH (08:22)
[2019-08-02] MEDS: HEPARIN SODIUM,PORCINE 5,000 UNITS/ML VIAL SQ SCH ×2 (08:22→15:23)
[2019-08-02] MEDS: CHOLECALCIFEROL (VIT D3) 1,000 UNITS TABLET PO SCH (08:22)
[2019-08-02] MEDS: ASPIRIN 81 MG EC TABLET PO SCH (08:22)
[2019-08-02] MEDS: GABAPENTIN 300 MG CAPSULE PO SCH ×2 (08:22→15:23)
[2019-08-02 08:30] VITALS: BP 111/52
[2019-08-02 09:25] LABS: BASOPHILS % (AUTO) 0.5 % (0.0-2.0); EOSINOPHILS % (AUTO) 1.3 % (1.0-6.0); HEMATOCRIT 44.6 % (41-53); HEMOGLOBIN 14.6 g/dL (13.5-17.5); LYMPHOCYTES # (AUTO) 2.8 K/uL (1.0-4.8); LYMPHOCYTES % (AUTO) 36.3 % (22.0-44.0); MEAN CORPUSCULAR HGB CONC 32.7 G/dL (31.0-37.0); MEAN CORPUSCULAR VOLUME 89 fL (80-100); MONOCYTES # (AUTO) 0.4 K/uL (0.1-1.0); MONOCYTES % (AUTO) 4.9 % (2.0-9.0); NEUTROPHILS # (AUTO) 4.4 K/uL (1.8-7.7); PLATELET COUNT (AUTO) 332 K/uL (150-450); RED BLOOD CELL COUNT(AUTO) 5.03 MIL/uL (4.50-5.90); RED CELL DISTRIBUTION WIDTH 13.4 % (11.5-14.5)
[2019-08-02 09:35] LABS: ALANINE AMINOTRANSFERASE 15 U/L (12-78); ALBUMIN 2.8 g/dL (3.4-5.0); ALKALINE PHOSPHATASE 130 U/L (46-116); ANION GAP 10 mmol/L (8-16); ASPARTATE AMINOTRANSFERASE 12 U/L (15-37); BILIRUBIN,TOTAL 0.3 mg/dL (0.1-1.0); CALCIUM, TOTAL 8.5 mg/dL (8.8-10.5); CARBON DIOXIDE 27 mmol/L (22-29); CHLORIDE 102 mmol/L (98-107); CREATININE 0.74 mg/dL (0.60-1.30); GLOMERULAR FILTR. RATE CALC > 60 mL/min (>60); GLUCOSE,RANDOM 152 mg/dL (70-110); POTASSIUM 3.5 mmol/L (3.5-5.1); SODIUM SERUM 139 mmol/L (136-145); TOTAL PROTEIN, SERUM 6.5 g/dL (6.4-8.2); UREA NITROGEN, BLOOD 12 mg/dL (7-18)
[2019-08-02 10:11] LABS: GLUCOMETER DEV NAME(LOC) 6N.1; GLUCOSE,POINT OF CARE 240 MG/DL (70-110)
[2019-08-02] MEDS: CHLORHEXIDINE GLUCONATE 4% 118 ML TOPICAL LIQUID TP SCH (10:15)
[2019-08-02 12:11] LABS: GLUCOMETER DEV NAME(LOC) 6N.1; GLUCOSE,POINT OF CARE 232 MG/DL (70-110)
[2019-08-02] MEDS ORDERED: DOXY100C PO (17:23)
[2019-08-02] MEDS ORDERED: MUPIROCIN CALCIUM 2% 22 GM OINTMENT NASAL SCH (21:00)
[2019-08-02 21:11] LABS: GLUCOMETER DEV NAME(LOC) 6N.1; GLUCOSE,POINT OF CARE 227 MG/DL (70-110)
== END 2019-08-02 18:05 | disposition home or self-care (01) | DRG 383 ==
LOC: EMS 00:45 → 6N 04:05 → ICU 16:36 → 6N 08-01 16:38
PROVIDERS: ADMIT Internal Medicine; ATTEND Internal Medicine
DX: L03.90 Cellulitis, unspecified (principal); E87.2 Acidosis; E11.65 Type 2 diabetes mellitus with hyperglycemia; E78.00 Pure hypercholesterolemia, unspecified; F31.9 Bipolar disorder, unspecified; J44.9 Chronic obstructive pulmonary disease, unspecified; I10 Essential (primary) hypertension; M54.30 Sciatica, unspecified side; Z88.8 Allergy status to other drugs, medicaments and biological substances; F17.210 Nicotine dependence, cigarettes, uncomplicated; F12.90 Cannabis use, unspecified, uncomplicated; E87.1 Hypo-osmolality and hyponatremia; Z83.3 Family history of diabetes mellitus; Z82.49 Family history of ischemic heart disease and other diseases of the circulatory system; L73.9 Follicular disorder, unspecified; R70.0 Elevated erythrocyte sedimentation rate; F25.9 Schizoaffective disorder, unspecified; B95.62 Methicillin resistant Staphylococcus aureus infection as the cause of diseases classified elsewhere; Z88.2 Allergy status to sulfonamides; Z79.4 Long term (current) use of insulin; E66.9 Obesity, unspecified; Z68.34 Body mass index [BMI] 34.0-34.9, adult; D72.829 Elevated white blood cell count, unspecified
CPT/HCPCS: 82947; 83605; 83735; 84100; 85651; 86140; 87040; 87070; 87081; 87205; G0378; J0696; J1644; J1815; J1885; J2930; J3370; J3480; J3490; J7030; J7050; J7060

== ENCOUNTER 2019-10-03 19:47 | Emergency (ER) | payer OTHER ==
[~2019-10-03] VITALS: Ht 170.2 cm; Wt 84.1 kg
[~2019-10-03 19:47] MED LIST changes: +DOXY100C PO
[2019-10-03 20:42] LABS: GLUCOSE,POINT OF CARE 487 MG/DL (70-110)
[2019-10-03 22:15] LABS: BASOPHILS % (AUTO) 0.5 % (0.0-2.0); HEMATOCRIT 44.6 % (41-53); HEMOGLOBIN 15.4 g/dL (13.5-17.5); LYMPHOCYTES % (AUTO) 32.5 % (22.0-44.0); MEAN CORPUSCULAR HEMOGLOBIN 29.8 pg (26.0-34.0); MEAN CORPUSCULAR HGB CONC 34.6 G/dL (31.0-37.0); MEAN CORPUSCULAR VOLUME 86 fL (80-100); MONOCYTES # (AUTO) 0.6 K/uL (0.1-1.0); MONOCYTES % (AUTO) 6.5 % (2.0-9.0); NEUTROPHILS # (AUTO) 5.5 K/uL (1.8-7.7); NEUTROPHILS % (AUTO) 59.5 % (40.0-70.0); PLATELET COUNT (AUTO) 363 K/uL (150-450); RED BLOOD CELL COUNT(AUTO) 5.18 MIL/uL (4.50-5.90); RED CELL DISTRIBUTION WIDTH 12.5 % (11.5-14.5)
[2019-10-03 22:22] LABS: ALANINE AMINOTRANSFERASE 15 U/L (12-78); ALBUMIN 3.3 g/dL (3.4-5.0); ALKALINE PHOSPHATASE 225 U/L (46-116); ANION GAP 5 mmol/L (8-16); ASPARTATE AMINOTRANSFERASE 8 U/L (15-37); BILIRUBIN,TOTAL 0.2 mg/dL (0.1-1.0); CALCIUM, TOTAL 8.9 mg/dL (8.8-10.5); CARBON DIOXIDE 31 mmol/L (22-29); CHLORIDE 96 mmol/L (98-107); CREATININE 0.89 mg/dL (0.60-1.30); GLOMERULAR FILTR. RATE CALC > 60 mL/min (>60); POTASSIUM 4.4 mmol/L (3.5-5.1); SODIUM SERUM 132 mmol/L (136-145); TOTAL PROTEIN, SERUM 7.5 g/dL (6.4-8.2); UREA NITROGEN, BLOOD 13 mg/dL (7-18)
[2019-10-03 22:26] LABS: GLUCOSE,RANDOM 442 mg/dL (70-110)
[2019-10-04] MEDS ORDERED: DiphenhydrAMINE HCL 25 MG CAPSULE PO ONE (00:45)
[2019-10-04] MEDS ORDERED: KETOROLAC TROMETHAMINE 30 MG/ML VIAL IVP ONE (00:45)
[2019-10-04] MEDS ORDERED: LIDOCAINE 1% 10 ML VIAL INJ ONE (00:45)
[2019-10-04] MEDS ORDERED: DOXYCYCLINE HYCLATE 100 MG CAPSULE PO ONE (00:45)
[2019-10-04 00:46] LABS: GLUCOSE,POINT OF CARE 347 MG/DL (70-110)
[2019-10-04] MEDS ORDERED: INSULIN REGULAR, HUMAN 100 UNITS/ML IVP ONE (01:00)
[2019-10-04 04:33] LABS: GLUCOSE,POINT OF CARE 179 MG/DL (70-110)
[2019-10-04 06:00] VITALS: BP 135/80
== END 2019-10-04 06:00 | disposition home or self-care (01) ==
LOC: EMS 19:48
DX: H60.01 Abscess of right external ear (principal); E11.65 Type 2 diabetes mellitus with hyperglycemia; H60.11 Cellulitis of right external ear; J45.909 Unspecified asthma, uncomplicated; F32.9 Major depressive disorder, single episode, unspecified; I10 Essential (primary) hypertension; E78.00 Pure hypercholesterolemia, unspecified; F17.210 Nicotine dependence, cigarettes, uncomplicated; F12.90 Cannabis use, unspecified, uncomplicated; Z79.84 Long term (current) use of oral hypoglycemic drugs; Z79.4 Long term (current) use of insulin; Z79.82 Long term (current) use of aspirin; Z88.2 Allergy status to sulfonamides; Z88.1 Allergy status to other antibiotic agents
CPT/HCPCS: 10060; 36415; 80053; 82962; 85025; 96374; 96375; 99283; J1815; J1885; J3490

== ENCOUNTER 2019-10-08 12:23 | Emergency (ER) | payer OTHER ==
[~2019-10-08] VITALS: Ht 170.2 cm; Wt 77.3 kg
[2019-10-08 13:15] VITALS: BP 125/73
[2019-10-08] MEDS ORDERED: BUPIVACAINE HCL/PF 0.25% 10 ML VIAL INJ ONE (13:15)
[2019-10-08] MEDS ORDERED: INSULIN REGULAR, HUMAN 100 UNITS/ML SQ ONE (13:15)
[2019-10-08] MEDS ORDERED: DOXYCYCLINE HYCLATE 100 MG CAPSULE PO ONE (13:15)
[2019-10-08] MEDS ORDERED: FOLI1 PO (13:57)
[2019-10-08] MEDS ORDERED: CHOL100018 PO (13:57)
[2019-10-08] MEDS ORDERED: BACITRACIN 0.9 GM PACKET OINTMENT TP ONE ×2 (14:00→14:15)
== END 2019-10-08 14:15 | disposition home or self-care (01) ==
LOC: EMS 12:27
DX: L02.414 Cutaneous abscess of left upper limb (principal); H60.11 Cellulitis of right external ear; J45.909 Unspecified asthma, uncomplicated; F31.9 Bipolar disorder, unspecified; E11.9 Type 2 diabetes mellitus without complications; E78.00 Pure hypercholesterolemia, unspecified; I10 Essential (primary) hypertension; F12.90 Cannabis use, unspecified, uncomplicated; Z88.2 Allergy status to sulfonamides; Z87.891 Personal history of nicotine dependence; Z88.1 Allergy status to other antibiotic agents; Z79.4 Long term (current) use of insulin; Z79.84 Long term (current) use of oral hypoglycemic drugs; Z79.82 Long term (current) use of aspirin
CPT/HCPCS: 10060; 82962; 96372; 99284; J1815; J3490

== ENCOUNTER 2019-12-26 19:47 | Emergency (ER) | payer OTHER ==
[~2019-12-26] VITALS: Ht 167.6 cm; Wt 90.9 kg
[~2019-12-26 19:47] MED LIST changes: +CHOL100018 PO; -CHOL200012 PO; -DOXY100C PO; +FOLI1 PO; -FOLI1TAB15 PO
[2019-12-26 20:24] LABS: GLUCOSE,POINT OF CARE 510 MG/DL (70-110)
[2019-12-26 23:59] LABS: BASOPHILS % (AUTO) 0.3 % (0.0-2.0); EOSINOPHILS % (AUTO) 0.3 % (1.0-6.0); LYMPHOCYTES # (AUTO) 2.8 K/uL (1.0-4.8); MONOCYTES # (AUTO) 0.9 K/uL (0.1-1.0)
[2019-12-27] MEDS ORDERED: DOXYCYCLINE HYCLATE 100 MG in DEXTROSE 5%-WATER 100 ML IV ONE ×2
[2019-12-27] MEDS ORDERED: SODIUM CHLORIDE 0.9% 1,000 ML IV ONE
[2019-12-27] MEDS ORDERED: CefTRIAXone 1 GM/DEXTROSE 50 ML IV ONE
[2019-12-27 00:02] LABS: HEMATOCRIT 44.7 % (41-53); HEMOGLOBIN 15.6 g/dL (13.5-17.5); LYMPHOCYTES % (AUTO) 19.4 % (22.0-44.0); MEAN CORPUSCULAR HEMOGLOBIN 29.7 pg (26.0-34.0); MEAN CORPUSCULAR HGB CONC 34.9 G/dL (31.0-37.0); MEAN CORPUSCULAR VOLUME 85 fL (80-100); MONOCYTES % (AUTO) 6.4 % (2.0-9.0); NEUTROPHILS % (AUTO) 73.6 % (40.0-70.0); PLATELET COUNT (AUTO) 358 K/uL (150-450); RED BLOOD CELL COUNT(AUTO) 5.25 MIL/uL (4.50-5.90)
[2019-12-27 00:03] LABS: NEUTROPHILS # (AUTO) 10.6 K/uL (1.8-7.7)
[2019-12-27 00:14] LABS: ALANINE AMINOTRANSFERASE 19 U/L (12-78); ALBUMIN 3.5 g/dL (3.4-5.0); ALKALINE PHOSPHATASE 211 U/L (46-116); ANION GAP 8 mmol/L (8-16); ASPARTATE AMINOTRANSFERASE 11 U/L (15-37); BILIRUBIN,TOTAL 0.9 mg/dL (0.1-1.0); CALCIUM, TOTAL 9.9 mg/dL (8.8-10.5); CARBON DIOXIDE 28 mmol/L (22-29); CHLORIDE 91 mmol/L (98-107); CREATININE 0.89 mg/dL (0.60-1.30); GLOMERULAR FILTR. RATE CALC > 60 mL/min (>60); SODIUM SERUM 127 mmol/L (136-145); TOTAL PROTEIN, SERUM 8.3 g/dL (6.4-8.2); UREA NITROGEN, BLOOD 10 mg/dL (7-18)
[2019-12-27 00:17] LABS: GLUCOSE,RANDOM 499 mg/dL (70-110)
[2019-12-27] MEDS ORDERED: INSULIN REGULAR, HUMAN 100 UNITS/ML IVP ONE (00:45)
[2019-12-27 02:10] LABS: GLUCOSE,POINT OF CARE 274 MG/DL (70-110)
[2019-12-27 03:26] VITALS: BP 138/75
== END 2019-12-27 03:34 | disposition home or self-care (01) ==
LOC: EMS 19:48
DX: L03.311 Cellulitis of abdominal wall (principal); L03.211 Cellulitis of face; E11.65 Type 2 diabetes mellitus with hyperglycemia; I10 Essential (primary) hypertension; E78.00 Pure hypercholesterolemia, unspecified; J44.9 Chronic obstructive pulmonary disease, unspecified; F31.9 Bipolar disorder, unspecified; F12.90 Cannabis use, unspecified, uncomplicated; Z87.891 Personal history of nicotine dependence; Z88.2 Allergy status to sulfonamides; Z88.8 Allergy status to other drugs, medicaments and biological substances; Z79.899 Other long term (current) drug therapy
CPT/HCPCS: 36415; 80053; 82962; 83605; 85025; 96365; 96366; 96367; 96375; 99284; J0696; J1815; J3490; J7030; J7060

== ENCOUNTER 2020-06-14 04:16 | Emergency (ER) | payer OTHER ==
[~2020-06-14] VITALS: Ht 170.2 cm; Wt 84.1 kg
[~2020-06-14 04:16] MED LIST changes: +FOLI-130 PO; -FOLI1 PO; +GABA-1181 PO; -GABA-531 PO
[2020-06-14] MEDS ORDERED: CefTRIAXone 1 GM/DEXTROSE 50 ML IV ONE (06:15)
[2020-06-14] MEDS ORDERED: 0.9% SODIUM CHLORIDE 10 ML SYRINGE IVP PRN (06:15)
[2020-06-14] MEDS ORDERED: KETOROLAC TROMETHAMINE 30 MG/ML VIAL IVP ONE (06:15)
[2020-06-14] MEDS ORDERED: VANCOMYCIN HCL 1.5 GM in DEXTROSE 5%-WATER 250 ML IV ONE (06:30)
[2020-06-14] MEDS ORDERED: LIDOCAINE 1% 10 ML VIAL INJ ONE (06:45)
[2020-06-14] MEDS ORDERED: LORazepam 2 MG/ML VIAL IVP ONE (06:45)
[2020-06-14 06:51] LABS: BASOPHILS % (AUTO) 0.5 % (0.0-2.0); EOSINOPHILS % (AUTO) 0.6 % (1.0-6.0); HEMATOCRIT 37.1 % (41-53); HEMOGLOBIN 12.9 g/dL (13.5-17.5); LYMPHOCYTES # (AUTO) 3.3 K/uL (1.0-4.8); LYMPHOCYTES % (AUTO) 27.5 % (22.0-44.0); MEAN CORPUSCULAR HEMOGLOBIN 29.6 pg (26.0-34.0); MEAN CORPUSCULAR HGB CONC 34.7 G/dL (31.0-37.0); MEAN CORPUSCULAR VOLUME 85 fL (80-100); MONOCYTES # (AUTO) 0.5 K/uL (0.1-1.0); MONOCYTES % (AUTO) 3.9 % (2.0-9.0); NEUTROPHILS # (AUTO) 8.1 K/uL (1.8-7.7); NEUTROPHILS % (AUTO) 67.5 % (40.0-70.0); PLATELET COUNT (AUTO) 328 K/uL (150-450); RED BLOOD CELL COUNT(AUTO) 4.34 MIL/uL (4.50-5.90); RED CELL DISTRIBUTION WIDTH 12.5 % (11.5-14.5)
[2020-06-14] MEDS ORDERED: SODIUM CHLORIDE 0.9% 2,000 ML IV ONE (07:00)
[2020-06-14 07:07] LABS: PROTHROMBIN TIME 10.3 SEC (9.4-11.6)
[2020-06-14 07:12] LABS: ALANINE AMINOTRANSFERASE 15 U/L (12-78); ALBUMIN 3.2 g/dL (3.4-5.0); ALKALINE PHOSPHATASE 180 U/L (46-116); ANION GAP 11 mmol/L (8-16); ASPARTATE AMINOTRANSFERASE 11 U/L (15-37); BILIRUBIN,TOTAL 0.6 mg/dL (0.1-1.0); CALCIUM, TOTAL 8.6 mg/dL (8.8-10.5); CARBON DIOXIDE 25 mmol/L (22-29); CHLORIDE 95 mmol/L (98-107); CREATINE KINASE, TOTAL ONLY 58 U/L (39-308); CREATININE 1.12 mg/dL (0.60-1.30); GLOMERULAR FILTR. RATE CALC > 60 mL/min (>60); POTASSIUM 3.5 mmol/L (3.5-5.1); SODIUM SERUM 131 mmol/L (136-145); TOTAL PROTEIN, SERUM 7.3 g/dL (6.4-8.2); UREA NITROGEN, BLOOD 4 mg/dL (7-18)
[2020-06-14 07:14] LABS: GLUCOSE,RANDOM 478 mg/dL (70-110)
[2020-06-14] MEDS ORDERED: POTASSIUM CHLORIDE 20 MEQ ER TABLET PO ONE (07:15)
[2020-06-14] MEDS ORDERED: INSULIN REGULAR, HUMAN 100 UNITS/ML IVP ONE (07:15)
[2020-06-14 07:22] LABS: LACTIC ACID 4.1 mmol/L (0.4-2.0)
[2020-06-14] MEDS ORDERED: MORPHINE SULFATE 4 MG/ML SYRINGE IVP ONE (07:30)
[2020-06-14] MEDS ORDERED: MORPHINE SULFATE 2 MG/ML SYRINGE IVP ONE (07:45)
[2020-06-14] MEDS ORDERED: ONDANSETRON HCL 4 MG/2 ML VIAL IVP PRN (08:15)
[2020-06-14] MEDS ORDERED: ACETAMINOPHEN 325 MG TABLET PO PRN (08:15)
[2020-06-14] MEDS ORDERED: INSULIN LISPRO 100 UNITS/ML SQ PRN (08:30)
[2020-06-14] MEDS ORDERED: DEXTROSE 50%-WATER 25 GM/50 ML SYRINGE IVP PRN (08:30)
[2020-06-14] MEDS ORDERED: SODIUM CHLORIDE 0.9% 1,000 ML IV SCH (08:30)
[2020-06-14 09:14] LABS: GLUCOSE,POINT OF CARE 196 MG/DL (70-110)
[2020-06-14] MEDS ORDERED: CefTRIAXone 1 GM/DEXTROSE 50 ML IV SCH (10:00)
[2020-06-14 10:58] LABS: AMPHET/METH SCREEN,URINE POSITIVE (NEGATIVE); BARBITURATE SCREEN, URINE NEGATIVE (NEGATIVE); BENZODIAZEPINES SCREEN,URINE NEGATIVE (NEGATIVE); CANNABINOID SCREEN,URINE POSITIVE (NEGATIVE); COCAINE SCREEN,URINE NEGATIVE (NEGATIVE); METHADONE SCREEN, URINE NEGATIVE (NEGATIVE); OPIATE SCREEN,URINE NEGATIVE (NEGATIVE)
[2020-06-14 10:59] LABS: PHENCYCLIDINE SCREEN,URINE NEGATIVE (NEGATIVE)
[2020-06-14 11:24] LABS: APPEARANCE,URINE CLEAR (CLEAR); BILIRUBIN,URINE NEGATIVE (NEGATIVE); GLUCOSE, URINE (UA) >=1000 mg/dL (NEGATIVE); KETONES,URINE NEGATIVE (NEGATIVE); LEUKOCYTE ESTERASE ,URINE NEGATIVE (NEGATIVE); NITRATE,URINE NEGATIVE (NEGATIVE); OCCULT BLOOD,URINE NEGATIVE (NEGATIVE); PH,URINE 5.5 (5.0-8.0); PROTEIN,URINE NEGATIVE (NEGATIVE); UROBILINOGEN,URINE 0.2 mg/dL (<=1.0)
[2020-06-14 11:28] VITALS: BP 118/71
[2020-06-14 11:37] LABS: BACTERIA,URINE None Seen /HPF (None Seen); RBC,URINE None Seen /HPF (0-2); WBC,URINE None Seen /HPF (0-5)
== END 2020-06-14 11:44 | disposition short-term general hospital (02) ==
LOC: EMS 04:16
DX: A41.9 Sepsis, unspecified organism (principal); L03.114 Cellulitis of left upper limb; E11.65 Type 2 diabetes mellitus with hyperglycemia; E87.2 Acidosis; I10 Essential (primary) hypertension; E11.9 Type 2 diabetes mellitus without complications; E78.00 Pure hypercholesterolemia, unspecified; J44.9 Chronic obstructive pulmonary disease, unspecified; F31.9 Bipolar disorder, unspecified; F12.90 Cannabis use, unspecified, uncomplicated; Z88.2 Allergy status to sulfonamides; Z88.8 Allergy status to other drugs, medicaments and biological substances; Z79.899 Other long term (current) drug therapy; Z79.4 Long term (current) use of insulin; Z87.891 Personal history of nicotine dependence
CPT/HCPCS: 10060; 36415; 73130; 80053; 80307; 81001; 82550; 82962; 83605; 84145; 85025; 85610; 87040; 87070; 87077; 87186; 87205; 93005; 96365; 96366; 96368; 96375; 99291; J0696; J1815; J1885; J2060; J2270; J3370; J3490; J7030; J7060

== ENCOUNTER 2020-11-10 15:34 | Emergency (ER) | payer OTHER ==
[~2020-11-10] VITALS: Ht 165.1 cm; Wt 75.0 kg
[~2020-11-10 15:34] MED LIST changes: +ASPI-1111 PO; -ASPI-556 PO; +LEVO750T68 PO
[2020-11-10] MEDS ORDERED: IBUPROFEN 800 MG TABLET PO ONE (17:00)
[2020-11-10] MEDS ORDERED: DOXYCYCLINE HYCLATE 100 MG TABLET PO ONE (17:00)
[2020-11-10 17:52] LABS: COVID AG,FIA SOURCE NASOPHARYNGEAL
[2020-11-10 17:55] VITALS: BP 137/73
== END 2020-11-10 18:00 | disposition home or self-care (01) ==
LOC: EMS 15:34
DX: L02.811 Cutaneous abscess of head [any part, except face] (principal); L02.11 Cutaneous abscess of neck; R05 Cough; L02.92 Furuncle, unspecified; J45.909 Unspecified asthma, uncomplicated; F31.9 Bipolar disorder, unspecified; E11.9 Type 2 diabetes mellitus without complications; E78.00 Pure hypercholesterolemia, unspecified; I10 Essential (primary) hypertension; F20.9 Schizophrenia, unspecified; F17.210 Nicotine dependence, cigarettes, uncomplicated; F12.90 Cannabis use, unspecified, uncomplicated; Z20.828 Contact with and (suspected) exposure to other viral communicable diseases; Z79.4 Long term (current) use of insulin; Z88.1 Allergy status to other antibiotic agents; Z88.8 Allergy status to other drugs, medicaments and biological substances; Z79.82 Long term (current) use of aspirin
CPT/HCPCS: 82962; 87426; 99283; C9803

== ENCOUNTER 2021-01-02 08:03 | Emergency (ER) | payer OTHER ==
[~2021-01-02] VITALS: Ht 172.7 cm; Wt 86.4 kg
[~2021-01-02 08:03] MED LIST changes: -LEVO750T68 PO; +SERT-158 PO; -SERT50TA12 PO
[2021-01-02 08:09] VITALS: BP 145/82
== END 2021-01-02 08:56 | disposition home or self-care (01) ==
LOC: EMS 08:03
DX: L03.211 Cellulitis of face (principal); J45.909 Unspecified asthma, uncomplicated; E11.9 Type 2 diabetes mellitus without complications; E78.00 Pure hypercholesterolemia, unspecified; I10 Essential (primary) hypertension; F17.210 Nicotine dependence, cigarettes, uncomplicated; F12.90 Cannabis use, unspecified, uncomplicated; Z88.2 Allergy status to sulfonamides; Z79.84 Long term (current) use of oral hypoglycemic drugs; Z79.899 Other long term (current) drug therapy
CPT/HCPCS: 99283

== ENCOUNTER → 2021-02-05 | Emergency (ER) | payer OTHER ==
[~2021-02-05] VITALS: Ht 167.6 cm; Wt 72.7 kg
[~2021-02-05] MED LIST changes: -ASPI-1111 PO; +ASPI-1444 PO; -CHOL100018 PO; +CHOL100044 PO; +IBUPROFEN 800 MG TABLET PO ONE; +INSULIN REGULAR, HUMAN 100 UNITS/ML SQ ONE; +MetFORMIN HCL 500 MG TABLET PO ONE
[2021-02-05 23:00] VITALS: BP 116/73
== END | disposition home or self-care (01) ==
LOC: EMS 21:38
DX: L02.414 Cutaneous abscess of left upper limb (principal); E11.65 Type 2 diabetes mellitus with hyperglycemia; J45.909 Unspecified asthma, uncomplicated; F31.9 Bipolar disorder, unspecified; E78.00 Pure hypercholesterolemia, unspecified; I10 Essential (primary) hypertension; F20.9 Schizophrenia, unspecified; F17.210 Nicotine dependence, cigarettes, uncomplicated; F12.90 Cannabis use, unspecified, uncomplicated; Z91.14 Patient's other noncompliance with medication regimen; Z88.1 Allergy status to other antibiotic agents; Z79.4 Long term (current) use of insulin
CPT/HCPCS: 82962; 96372; 99283; J1815

== ENCOUNTER 2021-02-10 22:42 | Emergency (ER) | payer OTHER ==
[~2021-02-10] VITALS: Ht 167.6 cm; Wt 92.7 kg
[~2021-02-10 22:42] MED LIST changes: -IBUPROFEN 800 MG TABLET PO ONE; -INSULIN REGULAR, HUMAN 100 UNITS/ML SQ ONE; -MetFORMIN HCL 500 MG TABLET PO ONE
[2021-02-10] MEDS ORDERED: INSULIN REGULAR, HUMAN 100 UNITS/ML SQ ONE (23:15)
[2021-02-10] MEDS ORDERED: DOXYCYCLINE HYCLATE 100 MG TABLET PO ONE (23:15)
[2021-02-10 23:36] LABS: BASOPHILS % (AUTO) 0.6 % (0.0-2.0); EOSINOPHILS % (AUTO) 1.9 % (1.0-6.0); HEMATOCRIT 39.8 % (41-53); HEMOGLOBIN 13.6 g/dL (13.5-17.5); LYMPHOCYTES % (AUTO) 35.7 % (22.0-44.0); MEAN CORPUSCULAR HEMOGLOBIN 29.3 pg (26.0-34.0); MEAN CORPUSCULAR HGB CONC 34.1 G/dL (31.0-37.0); MEAN CORPUSCULAR VOLUME 86 fL (80-100); MONOCYTES # (AUTO) 0.5 K/uL (0.1-1.0); MONOCYTES % (AUTO) 6.1 % (2.0-9.0); NEUTROPHILS # (AUTO) 4.7 K/uL (1.8-7.7); NEUTROPHILS % (AUTO) 55.7 % (40.0-70.0); PLATELET COUNT (AUTO) 394 K/uL (150-450); RED BLOOD CELL COUNT(AUTO) 4.64 MIL/uL (4.50-5.90); RED CELL DISTRIBUTION WIDTH 12.7 % (11.5-14.5)
[2021-02-10 23:59] LABS: ALANINE AMINOTRANSFERASE 19 U/L (12-78); ALBUMIN 3.4 g/dL (3.4-5.0); ALKALINE PHOSPHATASE 202 U/L (46-116); ANION GAP 11 mmol/L (8-16); ASPARTATE AMINOTRANSFERASE 12 U/L (15-37); BILIRUBIN,TOTAL 0.2 mg/dL (0.1-1.0); CALCIUM, TOTAL 9.1 mg/dL (8.8-10.5); CARBON DIOXIDE 27 mmol/L (22-29); CHLORIDE 96 mmol/L (98-107); CREATININE 1.08 mg/dL (0.60-1.30); GLOMERULAR FILTR. RATE CALC > 60 mL/min (>60); POTASSIUM 4.2 mmol/L (3.5-5.1); SODIUM SERUM 134 mmol/L (136-145); TOTAL PROTEIN, SERUM 7.7 g/dL (6.4-8.2); UREA NITROGEN, BLOOD 15 mg/dL (7-18)
[2021-02-11] MEDS ORDERED: IBUPROFEN 800 MG TABLET PO ONE
[2021-02-11] MEDS ORDERED: SODIUM CHLORIDE 0.9% 1,000 ML IV ONE
[2021-02-11 00:15] LABS: GLUCOSE,RANDOM 448 mg/dL (70-110)
[2021-02-11 00:46] LABS: ERYTHROCYTE SEDIMENTATION RATE 30 MM/HR (0-15)
[2021-02-11 01:30] VITALS: BP 110/71
[2021-02-11 01:51] LABS: GLUCOSE,POINT OF CARE 255 MG/DL (70-110)
== END 2021-02-11 01:45 | disposition home or self-care (01) ==
LOC: EMS 22:42
DX: L02.414 Cutaneous abscess of left upper limb (principal); J45.909 Unspecified asthma, uncomplicated; F31.9 Bipolar disorder, unspecified; E11.9 Type 2 diabetes mellitus without complications; E78.00 Pure hypercholesterolemia, unspecified; I10 Essential (primary) hypertension; F20.9 Schizophrenia, unspecified; F17.210 Nicotine dependence, cigarettes, uncomplicated; F12.90 Cannabis use, unspecified, uncomplicated; Z88.1 Allergy status to other antibiotic agents; Z79.4 Long term (current) use of insulin
CPT/HCPCS: 73080; 80053; 82962; 85025; 85651; 86140; 96360; 96372; 99284; J1815

== ENCOUNTER 2021-09-13 01:25 | Emergency (ER) | payer OTHER ==
[~2021-09-13] VITALS: Ht 165.1 cm; Wt 69.1 kg
[~2021-09-13 01:25] MED LIST changes: -BACL10TA PO; +CHOL-35 PO; -CHOL100044 PO; +CLIN300C3 PO; -FOLI-130 PO; -GABA-1181 PO; -METF-960 PO; -MV-M1TAB2 PO; -PREG50 PO; -QUET200T PO; -SERT-158 PO; -SIMV-259 PO; -THIA100T78 PO
[2021-09-13 01:48] VITALS: BP 109/65
== END 2021-09-13 03:01 | disposition home or self-care (01) ==
LOC: EMS 01:27
DX: L02.211 Cutaneous abscess of abdominal wall (principal); F31.9 Bipolar disorder, unspecified; J44.9 Chronic obstructive pulmonary disease, unspecified; F32.A Depression, unspecified; E11.9 Type 2 diabetes mellitus without complications; E78.00 Pure hypercholesterolemia, unspecified; I10 Essential (primary) hypertension; F20.9 Schizophrenia, unspecified; M54.30 Sciatica, unspecified side; F12.90 Cannabis use, unspecified, uncomplicated; Z79.4 Long term (current) use of insulin; Z79.84 Long term (current) use of oral hypoglycemic drugs; Z79.899 Other long term (current) drug therapy
CPT/HCPCS: 82962; 99283

== ENCOUNTER 2021-10-22 15:49 | Emergency (ER) | payer OTHER ==
[~2021-10-22] VITALS: Ht 165.1 cm; Wt 72.7 kg
[2021-10-22] MEDS ORDERED: KETOROLAC TROMETHAMINE 30 MG/ML VIAL IVP ONE (16:30)
[2021-10-22] MEDS ORDERED: ONDANSETRON HCL 4 MG/2 ML VIAL IVP ONE (16:30)
[2021-10-22] MEDS ORDERED: SODIUM CHLORIDE 0.9% 500 ML IV ONE (16:30)
[2021-10-22] MEDS ORDERED: ACETAMINOPHEN 500 MG TABLET PO ONE (16:30)
[2021-10-22] MEDS ORDERED: SODIUM CHLORIDE 0.9% 100 ML ONE (17:06)
[2021-10-22] MEDS ORDERED: IOHEXOL 350 MG/ML 100 ML VIAL ONE (17:06)
[2021-10-22 17:14] LABS: COVID AG,FIA SOURCE NASOPHARYNGEAL
[2021-10-22 17:17] LABS: BASOPHILS % (AUTO) 0.5 % (0.0-2.0); EOSINOPHILS % (AUTO) 1.2 % (1.0-6.0); HEMATOCRIT 38.7 % (41-53); HEMOGLOBIN 13.2 g/dL (13.5-17.5); LYMPHOCYTES # (AUTO) 1.6 K/uL (1.0-4.8); LYMPHOCYTES % (AUTO) 43.3 % (22.0-44.0); MEAN CORPUSCULAR HEMOGLOBIN 29.4 pg (26.0-34.0); MEAN CORPUSCULAR HGB CONC 34.2 G/dL (31.0-37.0); MEAN CORPUSCULAR VOLUME 86 fL (80-100); MONOCYTES # (AUTO) 0.4 K/uL (0.1-1.0); MONOCYTES % (AUTO) 11.5 % (2.0-9.0); NEUTROPHILS # (AUTO) 1.6 K/uL (1.8-7.7); NEUTROPHILS % (AUTO) 43.5 % (40.0-70.0); PLATELET COUNT (AUTO) 231 K/uL (150-450); RED CELL DISTRIBUTION WIDTH 12.8 % (11.5-14.5)
[2021-10-22 17:37] LABS: B-TYPE NATRIURETIC PEPTIDE 7 pg/mL (0-100)
[2021-10-22 17:40] LABS: ALANINE AMINOTRANSFERASE 16 U/L (12-78); ALBUMIN 2.8 g/dL (3.4-5.0); ALKALINE PHOSPHATASE 164 U/L (46-116); ANION GAP 4 mmol/L (8-16); ASPARTATE AMINOTRANSFERASE 10 U/L (15-37); BILIRUBIN,TOTAL 0.1 mg/dL (0.1-1.0); CALCIUM, TOTAL 8.1 mg/dL (8.8-10.5); CARBON DIOXIDE 29 mmol/L (22-29); CHLORIDE 101 mmol/L (98-107); CREATINE KINASE, TOTAL ONLY 42 U/L (39-308); CREATININE 0.91 mg/dL (0.60-1.30); GLOMERULAR FILTR. RATE CALC > 60 mL/min (>60); LIPASE 298 U/L (73-393); POTASSIUM 4.4 mmol/L (3.5-5.1); SODIUM SERUM 134 mmol/L (136-145); UREA NITROGEN, BLOOD 13 mg/dL (7-18)
[2021-10-22 17:43] LABS: GLUCOSE,RANDOM 401 mg/dL (70-110)
[2021-10-22] MEDS ORDERED: SODIUM CHLORIDE 0.9% 1,000 ML IV ONE (18:00)
[2021-10-22 18:19] LABS: INFLUENZA TYPE A NEGATIVE FOR TYPE A (NEGATIVE); INFLUENZA TYPE B NEGATIVE FOR TYPE B (NEGATIVE)
[2021-10-22 19:06] LABS: GLUCOMETER DEV NAME(LOC) ERT.5; GLUCOSE,POINT OF CARE 344 MG/DL (70-110)
[2021-10-22 19:41] VITALS: BP 108/54
== END 2021-10-22 21:30 | disposition home or self-care (01) ==
LOC: EMS 16:27
DX: U07.1 COVID-19 (principal); F31.9 Bipolar disorder, unspecified; J44.9 Chronic obstructive pulmonary disease, unspecified; E11.9 Type 2 diabetes mellitus without complications; E78.00 Pure hypercholesterolemia, unspecified; I10 Essential (primary) hypertension; F20.9 Schizophrenia, unspecified; M54.30 Sciatica, unspecified side; F12.90 Cannabis use, unspecified, uncomplicated
CPT/HCPCS: 36415; 71045; 74177; 80053; 82550; 82962; 83690; 83880; 84484; 85025; 87426; 87804; 93005; 96361; 96374; 96375; 99285; G0480; J1885; J2405; J7030; J7040; J7050; Q9967; U0003

== ENCOUNTER 2021-11-19 16:23 | Inpatient (IN) | payer MEDICAID, OTHER ==
[~2021-11-19] VITALS: Ht 165.1 cm; Wt 72.3 kg
[2021-11-19 18:36] LABS: BASOPHILS % (AUTO) 0.3 % (0.0-2.0); EOSINOPHILS % (AUTO) 1.6 % (1.0-6.0); HEMATOCRIT 41.1 % (41-53); HEMOGLOBIN 13.9 g/dL (13.5-17.5); LYMPHOCYTES # (AUTO) 2.9 K/uL (1.0-4.8); LYMPHOCYTES % (AUTO) 34.1 % (22.0-44.0); MEAN CORPUSCULAR HGB CONC 33.8 G/dL (31.0-37.0); MEAN CORPUSCULAR VOLUME 86 fL (80-100); MONOCYTES # (AUTO) 0.5 K/uL (0.1-1.0); MONOCYTES % (AUTO) 5.8 % (2.0-9.0); NEUTROPHILS % (AUTO) 58.2 % (40.0-70.0); PLATELET COUNT (AUTO) 347 K/uL (150-450); RED CELL DISTRIBUTION WIDTH 12.9 % (11.5-14.5)
[2021-11-19 18:45] LABS: ANION GAP 7 mmol/L (8-16); CARBON DIOXIDE 27 mmol/L (22-29); CHLORIDE 95 mmol/L (98-107); CREATININE 0.96 mg/dL (0.60-1.30); SODIUM SERUM 129 mmol/L (136-145); UREA NITROGEN, BLOOD 13 mg/dL (7-18)
[2021-11-19 18:46] LABS: ALANINE AMINOTRANSFERASE 19 U/L (12-78); ALBUMIN 3.5 g/dL (3.4-5.0); ALKALINE PHOSPHATASE 224 U/L (46-116); ASPARTATE AMINOTRANSFERASE < 5 U/L (15-37); BILIRUBIN,TOTAL 0.1 mg/dL (0.1-1.0); CALCIUM, TOTAL 9.1 mg/dL (8.8-10.5); GLOMERULAR FILTR. RATE CALC > 60 mL/min (>60); TOTAL PROTEIN, SERUM 7.3 g/dL (6.4-8.2)
[2021-11-19 18:57] LABS: GLUCOSE,RANDOM 563 mg/dL (70-110)
[2021-11-19] MEDS ORDERED: INSULIN REGULAR, HUMAN 100 UNITS/ML IVP ONE (19:30)
[2021-11-19] MEDS ORDERED: SODIUM CHLORIDE 0.9% 1,000 ML IV ONE (19:30)
[2021-11-19 19:31] LABS: AMPHET/METH SCREEN,URINE NEGATIVE (NEGATIVE); BARBITURATE SCREEN, URINE NEGATIVE (NEGATIVE); BENZODIAZEPINES SCREEN,URINE NEGATIVE (NEGATIVE); CANNABINOID SCREEN,URINE POSITIVE (NEGATIVE); COCAINE SCREEN,URINE NEGATIVE (NEGATIVE); METHADONE SCREEN, URINE NEGATIVE (NEGATIVE); OPIATE SCREEN,URINE NEGATIVE (NEGATIVE); PHENCYCLIDINE SCREEN,URINE NEGATIVE (NEGATIVE)
[2021-11-19 20:40] LABS: COVID AG,FIA SOURCE NASOPHARYNGEAL
[2021-11-19 21:16] LABS: GLUCOMETER DEV NAME(LOC) ERT.5; GLUCOSE,POINT OF CARE 205 MG/DL (70-110)
[2021-11-19] MEDS ORDERED: LORazepam 2 MG TABLET PO PRN (21:45)
[2021-11-19] MEDS ORDERED: QUEtiapine FUMARATE 100 MG TABLET PO PRN (21:45)
[2021-11-19] MEDS ORDERED: ZOLPIDEM TARTRATE 10 MG TABLET PO PRN (21:45)
[2021-11-20] MEDS ORDERED: INFLUENZA VIRUS VACCINE QVS 2021-22 (6MO+)/PF 60 MCG/0.5 ML SYRINGE IM. ONE (00:45)
[2021-11-20 01:05] VITALS: BP 142/91
[2021-11-20 06:26] LABS: GLUCOMETER DEV NAME(LOC) 3EX.; GLUCOSE,POINT OF CARE 270 MG/DL (70-110)
[2021-11-20 08:00] VITALS: BP 135/72
[2021-11-20] MEDS ORDERED: SERT-439 PO (11:28)
[2021-11-20] MEDS: SERTRALINE HCL 50 MG TABLET PO SCH (11:41)
[2021-11-20] MEDS ORDERED: DEXTROSE 50%-WATER 25 GM/50 ML SYRINGE IVP PRN (12:00)
[2021-11-20] MEDS ORDERED: ASPI81TA87 PO (12:29)
[2021-11-20] MEDS ORDERED: BISA-151 PO (12:31)
[2021-11-20] MEDS ORDERED: ONDANSETRON HCL 4 MG TABLET PO PRN (16:30)
[2021-11-20] MEDS ORDERED: MAGNESIUM HYDROXIDE SUSPENSION 30 ML UDCUP PO PRN (16:30)
[2021-11-20] MEDS ORDERED: ALBUTEROL SULFATE HFA 90 MCG/PUFF 8 GM INHALER IH PRN (16:30)
[2021-11-20] MEDS ORDERED: NICOTINE 14 MG/24 HOUR PATCH TD PRN (16:30)
[2021-11-20] MEDS ORDERED: LOPERAMIDE HCL 2 MG CAPSULE PO PRN (16:30)
[2021-11-20] MEDS ORDERED: ACETAMINOPHEN 325 MG TABLET PO PRN (16:30)
[2021-11-20] MEDS ORDERED: DOCUSATE SODIUM 100 MG CAPSULE PO PRN (16:30)
[2021-11-20] MEDS ORDERED: GuaiFENesin/D-METHORPHAN [SUGAR-FREE] 200-20MG/10 ML SYRUP UDCUP PO PRN (16:30)
[2021-11-20] MEDS ORDERED: MAG HYDROX/AL HYDROX/SIMETH ES 30 ML SUSPENSION UDCUP PO PRN (16:30)
[2021-11-20] MEDS ORDERED: CloNIDine HCL 0.1 MG TABLET PO PRN (16:30)
[2021-11-20] MEDS ORDERED: PETROLATUM,WHITE 28 GM JELLY TP PRN (16:30)
[2021-11-20] MEDS ORDERED: IBUPROFEN 400 MG TABLET PO PRN (16:30)
[2021-11-20 16:46] LABS: GLUCOMETER DEV NAME(LOC) 3EX.; GLUCOSE,POINT OF CARE 423 MG/DL (70-110)
[2021-11-20 16:58] VITALS: BP 156/94
[2021-11-20] MEDS: INSULIN GLARGINE,HUM.REC.ANLOG 100 UNITS/ML SQ SCH (17:00)
[2021-11-20] MEDS: INSULIN LISPRO 100 UNITS/ML SQ PRN ×2 (17:44→21:24)
[2021-11-20] MEDS ORDERED: INSULIN LISPRO 100 UNITS/ML SQ ONE (17:45)
[2021-11-20 19:35] LABS: GLUCOMETER DEV NAME(LOC) 3EX.; GLUCOSE,POINT OF CARE 290 MG/DL (70-110)
[2021-11-20 21:11] LABS: GLUCOMETER DEV NAME(LOC) 3EX.; GLUCOSE,POINT OF CARE 266 MG/DL (70-110)
[2021-11-21 06:42] LABS: GLUCOMETER DEV NAME(LOC) 3EX.; GLUCOSE,POINT OF CARE 247 MG/DL (70-110)
[2021-11-21] MEDS: INSULIN LISPRO 100 UNITS/ML SQ PRN ×4 (07:00→20:47)
[2021-11-21 08:00] VITALS: BP 114/76
[2021-11-21] MEDS: ASPIRIN 81 MG CHEWABLE TABLET PO SCH (09:27)
[2021-11-21] MEDS: ATORVASTATIN CALCIUM 20 MG TABLET PO SCH (09:27)
[2021-11-21] MEDS: SERTRALINE HCL 50 MG TABLET PO SCH (09:27)
[2021-11-21] MEDS: CHOLECALCIFEROL (VIT D3) 1,000 UNITS [25 MCG] TABLET PO SCH (09:27)
[2021-11-21] MEDS: INSULIN GLARGINE,HUM.REC.ANLOG 100 UNITS/ML SQ SCH ×2 (09:31→17:16)
[2021-11-21 12:17] LABS: GLUCOMETER DEV NAME(LOC) 3EX.; GLUCOSE,POINT OF CARE 273 MG/DL (70-110)
[2021-11-21 16:20] VITALS: BP 119/77
[2021-11-21 16:31] LABS: GLUCOMETER DEV NAME(LOC) 3EX.; GLUCOSE,POINT OF CARE 316 MG/DL (70-110)
[2021-11-21 20:21] LABS: GLUCOMETER DEV NAME(LOC) 3EX.; GLUCOSE,POINT OF CARE 312 MG/DL (70-110)
[2021-11-22 06:11] LABS: GLUCOMETER DEV NAME(LOC) 3EX.; GLUCOSE,POINT OF CARE 149 MG/DL (70-110)
[2021-11-22] MEDS: INSULIN LISPRO 100 UNITS/ML SQ PRN ×4 (06:52→21:12)
[2021-11-22 09:09] VITALS: BP 125/67
[2021-11-22] MEDS: SERTRALINE HCL 50 MG TABLET PO SCH (09:11)
[2021-11-22] MEDS: CHOLECALCIFEROL (VIT D3) 1,000 UNITS [25 MCG] TABLET PO SCH (09:11)
[2021-11-22] MEDS: ASPIRIN 81 MG CHEWABLE TABLET PO SCH (09:12)
[2021-11-22] MEDS: ATORVASTATIN CALCIUM 20 MG TABLET PO SCH (09:34)
[2021-11-22 09:47] LABS: GLUCOMETER DEV NAME(LOC) 3E.I 2; GLUCOSE,POINT OF CARE 240 MG/DL (70-110)
[2021-11-22] MEDS: INSULIN GLARGINE,HUM.REC.ANLOG 100 UNITS/ML SQ SCH ×2 (09:58→17:01)
[2021-11-22 12:16] LABS: GLUCOMETER DEV NAME(LOC) 3E.I 2; GLUCOSE,POINT OF CARE 240 MG/DL (70-110)
[2021-11-22 14:08] VITALS: BP 125/67
[2021-11-22 14:31] LABS: GLUCOMETER DEV NAME(LOC) 3EX.; GLUCOSE,POINT OF CARE 219 MG/DL (70-110)
[2021-11-22 16:02] VITALS: BP 124/71
[2021-11-22 17:26] LABS: GLUCOMETER DEV NAME(LOC) 3EX.; GLUCOSE,POINT OF CARE 193 MG/DL (70-110)
[2021-11-22 22:06] LABS: GLUCOMETER DEV NAME(LOC) 3EX.; GLUCOSE,POINT OF CARE 155 MG/DL (70-110)
[2021-11-23 06:26] LABS: GLUCOMETER DEV NAME(LOC) 3EX.; GLUCOSE,POINT OF CARE 118 MG/DL (70-110)
[2021-11-23] MEDS: INSULIN LISPRO 100 UNITS/ML SQ PRN ×4 (06:47→20:58)
[2021-11-23] MEDS: ASPIRIN 81 MG CHEWABLE TABLET PO SCH (08:18)
[2021-11-23] MEDS: CHOLECALCIFEROL (VIT D3) 1,000 UNITS [25 MCG] TABLET PO SCH (08:18)
[2021-11-23] MEDS: SERTRALINE HCL 50 MG TABLET PO SCH (08:18)
[2021-11-23] MEDS: ATORVASTATIN CALCIUM 20 MG TABLET PO SCH (08:18)
[2021-11-23] MEDS: INSULIN GLARGINE,HUM.REC.ANLOG 100 UNITS/ML SQ SCH ×2 (08:26→17:09)
[2021-11-23 08:56] VITALS: BP 133/69
[2021-11-23 09:10] VITALS: BP 133/69
[2021-11-23 12:11] LABS: GLUCOMETER DEV NAME(LOC) 3EX.; GLUCOSE,POINT OF CARE 192 MG/DL (70-110)
[2021-11-23 16:46] LABS: GLUCOMETER DEV NAME(LOC) 3EX.; GLUCOSE,POINT OF CARE 193 MG/DL (70-110)
[2021-11-23 17:08] VITALS: BP 112/65
[2021-11-23 20:26] LABS: GLUCOMETER DEV NAME(LOC) 3EX.; GLUCOSE,POINT OF CARE 168 MG/DL (70-110)
[2021-11-23] MEDS: RisperiDONE 1 MG TABLET PO SCH (20:57)
[2021-11-24 06:37] LABS: GLUCOMETER DEV NAME(LOC) 3EX.; GLUCOSE,POINT OF CARE 93 MG/DL (70-110)
[2021-11-24] MEDS: CHOLECALCIFEROL (VIT D3) 1,000 UNITS [25 MCG] TABLET PO SCH (08:11)
[2021-11-24] MEDS: SERTRALINE HCL 50 MG TABLET PO SCH (08:11)
[2021-11-24] MEDS: ASPIRIN 81 MG CHEWABLE TABLET PO SCH (08:11)
[2021-11-24] MEDS: ATORVASTATIN CALCIUM 20 MG TABLET PO SCH (08:11)
[2021-11-24] MEDS: INSULIN GLARGINE,HUM.REC.ANLOG 100 UNITS/ML SQ SCH ×2 (08:20→17:16)
[2021-11-24 09:00] VITALS: BP 125/75
[2021-11-24 11:36] LABS: GLUCOMETER DEV NAME(LOC) 3EX.; GLUCOSE,POINT OF CARE 240 MG/DL (70-110)
[2021-11-24] MEDS: INSULIN LISPRO 100 UNITS/ML SQ PRN ×3 (12:05→21:01)
[2021-11-24 16:29] VITALS: BP 110/64
[2021-11-24 16:36] LABS: GLUCOMETER DEV NAME(LOC) 3EX.; GLUCOSE,POINT OF CARE 196 MG/DL (70-110)
[2021-11-24 20:30] LABS: GLUCOMETER DEV NAME(LOC) 3EX.; GLUCOSE,POINT OF CARE 226 MG/DL (70-110)
[2021-11-24] MEDS: RisperiDONE 1 MG TABLET PO SCH (20:59)
[2021-11-25 05:21] LABS: GLUCOMETER DEV NAME(LOC) 3EX.; GLUCOSE,POINT OF CARE 128 MG/DL (70-110)
[2021-11-25] MEDS: INSULIN LISPRO 100 UNITS/ML SQ PRN ×2 (07:08→11:38)
[2021-11-25] MEDS: INSULIN GLARGINE,HUM.REC.ANLOG 100 UNITS/ML SQ SCH (08:12)
[2021-11-25 08:31] LABS: GLUCOMETER DEV NAME(LOC) 3E.I 2; GLUCOSE,POINT OF CARE 233 MG/DL (70-110)
[2021-11-25] MEDS: CHOLECALCIFEROL (VIT D3) 1,000 UNITS [25 MCG] TABLET PO SCH (08:36)
[2021-11-25] MEDS: ATORVASTATIN CALCIUM 20 MG TABLET PO SCH (08:36)
[2021-11-25] MEDS: ASPIRIN 81 MG CHEWABLE TABLET PO SCH (08:37)
[2021-11-25] MEDS: SERTRALINE HCL 50 MG TABLET PO SCH (08:37)
[2021-11-25 09:20] VITALS: BP 110/67
[2021-11-25 09:35] VITALS: BP 119/68
[2021-11-25 10:06] VITALS: BP 116/96
[2021-11-25] MEDS ORDERED: SERT-439 PO (10:17)
[2021-11-25] MEDS ORDERED: RISP1TAB98 PO (10:17)
[2021-11-25 10:37] VITALS: BP 138/86
[2021-11-25] MEDS ORDERED: INSLAN SQ (10:48)
[2021-11-25] MEDS ORDERED: TETANUS IMMUNE GLOBULIN 250 UNITS/SYRINGE IM. ONE (11:00)
[2021-11-25 11:35] VITALS: BP 149/69
[2021-11-25 12:02] LABS: GLUCOMETER DEV NAME(LOC) 3E.I 2; GLUCOSE,POINT OF CARE 225 MG/DL (70-110)
[2021-11-25 12:45] VITALS: BP 150/87
[2021-11-25 13:15] LABS: COVID AG,FIA SOURCE NASAL SWAB
[2021-11-25] MEDS ORDERED: BACITRACIN 28 GM OINTMENT TP SCH (17:00)
== END 2021-11-25 14:30 | disposition home or self-care (01) | DRG 750 ==
LOC: EMS 16:25 → 3EI 11-20
PROVIDERS: ADMIT Psychiatry & Neurology Psychiatry; ATTEND Psychiatry & Neurology Psychiatry
DX: F25.1 Schizoaffective disorder, depressive type (principal); R45.851 Suicidal ideations; E11.9 Type 2 diabetes mellitus without complications; Z59.00 Homelessness unspecified; E55.9 Vitamin D deficiency, unspecified; E78.00 Pure hypercholesterolemia, unspecified; E78.5 Hyperlipidemia, unspecified; F12.10 Cannabis abuse, uncomplicated; F31.9 Bipolar disorder, unspecified; I10 Essential (primary) hypertension; M54.30 Sciatica, unspecified side; Z20.822 Contact with and (suspected) exposure to COVID-19; J44.9 Chronic obstructive pulmonary disease, unspecified; Z79.899 Other long term (current) drug therapy; Z87.891 Personal history of nicotine dependence; Z88.6 Allergy status to analgesic agent; Z88.8 Allergy status to other drugs, medicaments and biological substances; Z90.49 Acquired absence of other specified parts of digestive tract; Z79.84 Long term (current) use of oral hypoglycemic drugs
CPT/HCPCS: 70450; 73502; 80053; 82962; 85025; 87081; 99285; G0480; J1670; J1815; J7030

== ENCOUNTER 2022-03-09 14:05 | Emergency (ER) | payer MEDICAID, OTHER ==
[~2022-03-09] VITALS: Ht 165.1 cm; Wt 70.9 kg
[~2022-03-09 14:05] MED LIST changes: -ASPI-1444 PO; +ASPI81TA87 PO; -CHOL-35 PO; +CHOL25TA4 PO; -CLIN300C3 PO; +RISP1TAB98 PO; +SERT-439 PO
[2022-03-09] MEDS ORDERED: PREG100C55 PO (14:13)
[2022-03-09] MEDS ORDERED: METF-446 PO (14:13)
[2022-03-09 15:01] LABS: BASOPHILS % (AUTO) 0.3 % (0.0-2.0); EOSINOPHILS % (AUTO) 1.2 % (1.0-6.0); HEMATOCRIT 39.6 % (41-53); HEMOGLOBIN 13.4 g/dL (13.5-17.5); LYMPHOCYTES # (AUTO) 2.3 K/uL (1.0-4.8); MEAN CORPUSCULAR HEMOGLOBIN 28.7 pg (26.0-34.0); MEAN CORPUSCULAR VOLUME 85 fL (80-100); MONOCYTES # (AUTO) 0.4 K/uL (0.1-1.0); MONOCYTES % (AUTO) 4.7 % (2.0-9.0); NEUTROPHILS # (AUTO) 6.3 K/uL (1.8-7.7); NEUTROPHILS % (AUTO) 68.8 % (40.0-70.0); PLATELET COUNT (AUTO) 352 K/uL (150-450); RED BLOOD CELL COUNT(AUTO) 4.68 MIL/uL (4.50-5.90); RED CELL DISTRIBUTION WIDTH 13.3 % (11.5-14.5)
[2022-03-09 15:14] LABS: ALANINE AMINOTRANSFERASE 15 U/L (12-78); ALBUMIN 3.6 g/dL (3.4-5.0); ALKALINE PHOSPHATASE 187 U/L (46-116); ANION GAP 10 mmol/L (8-16); ASPARTATE AMINOTRANSFERASE 11 U/L (15-37); BILIRUBIN,TOTAL 0.3 mg/dL (0.1-1.0); CARBON DIOXIDE 26 mmol/L (22-29); CHLORIDE 98 mmol/L (98-107); CREATININE 0.88 mg/dL (0.60-1.30); GLOMERULAR FILTR. RATE CALC > 60 mL/min (>60); SODIUM SERUM 134 mmol/L (136-145); TOTAL PROTEIN, SERUM 7.5 g/dL (6.4-8.2); UREA NITROGEN, BLOOD 25 mg/dL (7-18)
[2022-03-09] MEDS ORDERED: SODIUM CHLORIDE 0.9% 1,000 ML IV ONE (15:15)
[2022-03-09] MEDS ORDERED: DOXYCYCLINE HYCLATE 100 MG TABLET PO ONE (15:15)
[2022-03-09] MEDS ORDERED: ACETAMINOPHEN 500 MG TABLET PO ONE (15:15)
[2022-03-09 15:17] LABS: GLUCOSE,RANDOM 421 mg/dL (70-110)
[2022-03-09 15:50] LABS: CREATINE KINASE, TOTAL ONLY 101 U/L (39-308)
[2022-03-09] MEDS ORDERED: INSULIN REGULAR, HUMAN 100 UNITS/ML IVP ONE (16:00)
[2022-03-09] MEDS ORDERED: DOXY-354 PO (16:53)
[2022-03-09 17:02] VITALS: BP 132/89
[2022-03-09 17:17] LABS: GLUCOSE,POINT OF CARE 151 MG/DL (70-110)
== END 2022-03-09 19:04 | disposition home or self-care (01) ==
LOC: EMS 14:05
DX: L03.312 Cellulitis of back [any part except buttock and flank] (principal); E11.9 Type 2 diabetes mellitus without complications; J45.909 Unspecified asthma, uncomplicated; F31.9 Bipolar disorder, unspecified; J44.9 Chronic obstructive pulmonary disease, unspecified; E78.00 Pure hypercholesterolemia, unspecified; I10 Essential (primary) hypertension; F20.9 Schizophrenia, unspecified; E66.9 Obesity, unspecified; F12.90 Cannabis use, unspecified, uncomplicated; Z86.69 Personal history of other diseases of the nervous system and sense organs; Z98.890 Other specified postprocedural states; Z88.8 Allergy status to other drugs, medicaments and biological substances
CPT/HCPCS: 36415; 71045; 80053; 82550; 82962; 83880; 84484; 85025; 93005; 96361; 96374; 99285; J1815; J7030

== ENCOUNTER 2022-04-20 13:45 | Emergency (ER) | payer OTHER ==
[~2022-04-20] VITALS: Ht 170.2 cm; Wt 75.0 kg
[~2022-04-20 13:45] MED LIST changes: +DOXY-354 PO; +METF-446 PO; +PREG100C55 PO
[2022-04-20] MEDS ORDERED: DOXY-354 PO (15:47)
[2022-04-20 16:26] VITALS: BP 122/81
== END 2022-04-20 16:28 | disposition home or self-care (01) ==
LOC: EMS 13:49
DX: L03.221 Cellulitis of neck (principal); J45.909 Unspecified asthma, uncomplicated; F31.9 Bipolar disorder, unspecified; J44.9 Chronic obstructive pulmonary disease, unspecified; E11.9 Type 2 diabetes mellitus without complications; E78.00 Pure hypercholesterolemia, unspecified; I10 Essential (primary) hypertension; F20.9 Schizophrenia, unspecified; E66.9 Obesity, unspecified; F12.90 Cannabis use, unspecified, uncomplicated; Z86.69 Personal history of other diseases of the nervous system and sense organs; Z98.890 Other specified postprocedural states; Z88.1 Allergy status to other antibiotic agents
CPT/HCPCS: 82962; 99283

== ENCOUNTER 2022-04-21 23:03 | Emergency (ER) | payer OTHER ==
[~2022-04-21] VITALS: Ht 170.2 cm; Wt 75.0 kg
[2022-04-22 00:05] VITALS: BP 126/70
== END 2022-04-22 02:47 | disposition left against medical advice (07) ==
LOC: EMS 23:04
DX: R73.9 Hyperglycemia, unspecified (principal); Z53.21 Procedure and treatment not carried out due to patient leaving prior to being seen by health care provider

== ENCOUNTER 2022-06-03 19:04 | Emergency (ER) | payer OTHER ==
[~2022-06-03] VITALS: Ht 165.1 cm; Wt 68.2 kg
[2022-06-03 19:15] VITALS: BP 137/86
== END 2022-06-03 20:15 | disposition left against medical advice (07) ==
LOC: EMS 19:04
DX: Z53.21 Procedure and treatment not carried out due to patient leaving prior to being seen by health care provider (principal)